=== PATIENT | male | born 1935 | race Caucasian/White ===

== ENCOUNTER 2019-03-02 16:11 | Inpatient (IN) | payer MEDICARE ==
--- NOTE | 2019-03-02 18:18 | XR ---
EXAMINATION TYPE: XR hand complete RT DATE OF EXAM: 03/02/2019 COMPARISON: NONE HISTORY: Pain and swelling TECHNIQUE: 3 views FINDINGS: There is soft tissue swelling on the dorsum of the hand. There is periarticular calcificati on at the second and third MP joints. I see no definite fracture. There is calcification in the trian gular cartilage of the wrist. IMPRESSION: Soft tissue swelling. Osteoarthritis and chondrocalcinosis. There is some tumoral calcino sis around the second and third MP joints. No fracture seen.
--- NOTE | 2019-03-02 18:19 | XR ---
EXAMINATION TYPE: XR wrist complete RT DATE OF EXAM: 03/02/2019 COMPARISON: NONE HISTORY: Pain and swelling TECHNIQUE: 4 views FINDINGS: There is soft tissue swelling around the wrist. There is calcification of the triangular ca rtilage. Carpal bones appear intact. I see no fracture. IMPRESSION: Chondrocalcinosis. No fracture seen. Soft tissue swelling.
--- NOTE | 2019-03-02 18:21 | XR ---
EXAMINATION TYPE: XR elbow complete RT DATE OF EXAM: 03/02/2019 COMPARISON: NONE HISTORY: Pain TECHNIQUE: 3 views FINDINGS: There is spurring on the olecranon process. There is moderate spurring and calcification of the coronoid process of the ulna. There is spurring of the radial head and at the radial tubercle. T here is no evidence of joint effusion. IMPRESSION: Hypertrophic osteoarthritis. No fracture seen.
[2019-03-02 18:31] LABS: INR 0.9 (<1.2); Partial Thromboplastin Time 22.3 sec (22.0-30.0); Prothrombin Time 10.1 sec (9.0-12.0)
[2019-03-02 18:34] LABS: Basophils # (A) 0.1 k/uL (0-0.2); Basophils % (A) 1 %; Eosinophils # (A) 0.3 k/uL (0-0.7); Eosinophils % (A) 3 %; HGB 12.3 gm/dL (13.0-17.5); Lymphocytes % (A) 11 %; MCH 29.8 pg (25.0-35.0); MCHC 33.1 g/dL (31.0-37.0); MCV 90.1 fL (80.0-100.0); Mean Platelet Volume 8.7; Monocytes # (A) 0.7 k/uL (0-1.0); Monocytes % (A) 8 %; Neutrophils # (A) 7.2 k/uL (1.3-7.7); Neutrophils % (A) 76 %; Platelet Count 193 k/uL (150-450); RBC 4.11 m/uL (4.30-5.90); RDW 14.2 % (11.5-15.5); WBC 9.4 k/uL (3.8-10.6)
[2019-03-02 18:36] LABS: Albumin 3.8 g/dL (3.5-5.0); C Reactive Protein 44.6 mg/L (<10.0); Calcium 10.1 mg/dL (8.4-10.2); Potassium 3.8 mmol/L (3.5-5.1); Total Bilirubin 1.1 mg/dL (0.2-1.3); Total Protein 6.6 g/dL (6.3-8.2)
[2019-03-02] MEDS ORDERED: SODIUM CHLORIDE 0.9% 500 ML 500 ML IV ONE (19:38)
[2019-03-02 19:41] LABS: Erythrocyte Sedimentation Rate 48 mm/hr (0-15)
[2019-03-02] MEDS ORDERED: PIPERACILLIN-TAZOBACTAM 3.375 GM in SODIUM CHLORIDE 0.9% 100 ML IVPB STA (20:16)
[2019-03-02] MEDS ORDERED: VANCOMYCIN IV PER PHARMACY 1 EACH MISC MISCELLANE PRN (20:17)
--- NOTE | 2019-03-02 20:17 | US ---
EXAMINATION TYPE: US venous doppler duplex UE RT DATE OF EXAM: 03/02/2019 COMPARISON: NONE CLINICAL HISTORY: Pain. Right arm swelling SIDE PERFORMED: Right Right Arm: Negative for DVT No evidence of DVT right arm IMPRESSION: There is venous flow demonstrated in the jugular subclavian axillary brachial vein of the right arm. There is also patency of the radius and ulna veins. There is no evidence of thrombosis.
--- NOTE | 2019-03-02 20:23 | ED ---
Upper Extremity HPI - General Chief Complaint: Extremity Injury, Upper Stated Complaint: Arm injury/arm swelling Time Seen by Provider: 03/02/19 17:23 Source: patient Mode of arrival: ambulatory Limitations: altered mental status - History of Present Illness Initial Comments: 83-year-old male with past medical history of Alzheimer's presenting today for chief complaint of right hand swelling x3 days. Patient is accompanied by his who states that patient's hand was swollen on Saturday. She denies patient falling patient denies any known injury. She states she examined the area and noticed a small abrasion of the right posterior elbow with some surrounding redness/bruising. Patient states she feels he may have had an injury. Patient was unable to find the insurance card and did not present for evaluation until today. She denies noting a fever. Patient states is tender to touch of the right hand and red. Family denies anticoagulation use. denies abnormal behaviors. She states patient frequently picks his skin and has multiple open areas of the skin. She states he has history of skin cancer, denies history of blood clots. Pt denies loss of sensation or coolness of the extremity. Pt states it is family to move all 5 fingers due to the swelling. Remaining ROS (-), upon arrival patient appears well, no signs of acute distress. - Related Data Home Medications Medication Instructions Recorded Confirmed Ascorbic Acid [Vitamin C] 500 mg PO DAILY 03/02/19 03/02/19 Cholecalciferol [Vitamin D3] 1,000 unit PO DAILY 03/02/19 03/02/19 Cyanocobalamin (Vitamin B-12) 1,000 mcg PO DAILY 03/02/19 03/02/19 [Vitamin B-12] Donepezil [Aricept] 10 mg PO DAILY 03/02/19 03/02/19 Levothyroxine Sodium [Synthroid] 50 mcg PO DAILY 03/02/19 03/02/19 Losartan/Hydrochlorothiazide 1 tab PO DAILY 03/02/19 03/02/19 [Hyzaar 100-25 Tablet] Minipress (Mg Unknown) 1 cap PO DAILY 03/02/19 03/02/19 Minipress (Mg Unknown) 2 cap PO HS 03/02/19 03/02/19 Mirabegron [Myrbetriq] 25 mg PO DAILY 03/02/19 03/02/19 Mirabegron [Myrbetriq] 50 mg PO DAILY 03/02/19 03/02/19 NIFEdipine XL [Procardia XL] 60 mg PO DAILY 03/02/19 03/02/19 Pantoprazole Sodium [Protonix] 40 mg PO DAILY 03/02/19 03/02/19 Ranitidine HCl [Zantac] 300 mg PO DAILY 03/02/19 03/02/19 Simvastatin [Zocor] 10 mg PO DAILY 03/02/19 03/02/19 Tamsulosin HCl [Flomax] 0.8 mg PO DAILY 03/02/19 03/02/19 Allergies Allergy/AdvReac Type Severity Reaction Status Date / Time No Known Allergies Allergy Verified 03/02/19 20:43 Review of Systems ROS Statement: Those systems with pertinent positive or pertinent negative responses have been documented in the HPI. ROS Other: All systems not noted in ROS Statement are negative. Past Medical History Past Medical History: Coronary Artery Disease (CAD), Dementia, Diabetes Mellitus, Hyperlipidemia, Hypertension, Thyroid Disorder History of Any Multi-Drug Resistant Organisms: None Reported Additional Past Surgical History / Comment(s): toe amputation Past Psychological History: No Psychological Hx Reported Smoking Status: Never smoker Past Alcohol Use History: None Reported Past Drug Use History: None Reported - Past Family History Brother(s) Family Medical History: Diabetes Mellitus General Exam - General Exam Comments Initial Comments: General: The patient is awake and alert, in no distress, and does not appear acutely ill. Eye: +3 mm pupils are equal, round and reactive to light, extra-ocular movements are intact. No nystagmus. There is normal conjunctiva bilaterally. No signs of icterus. Ears, nose, mouth and throat: There are moist mucous membranes and no oral lesions. Neck: The neck is supple, there is no tenderness or JVD. Cardiovascular: There is a regular rate and rhythm. No murmur, rub or gallop is appreciated. Respiratory: Lungs are clear to auscultation, respirations are non-labored, b reath sounds are equal. No wheezes, stridor, rales, or rhonchi. Gastrointestinal: Soft, non-distended, non-tender abdomen without masses or organomegaly noted. There is no rebound or guarding present. No CVA tenderness. Bowel sounds are unremarkable. Musculoskeletal: Normal ROM, no tenderness. Strength 5/5. Sensation intact. Radial pulses equal bilaterally 2+. Neurological: A&O x 3. CN II-XII intact, There are no obvious motor or sensory deficits. Coordination appears grossly intact. Speech is normal. Skin: Skin is warm and dry and no rashes. Superifical abrasions, and areas of obviously picked skin on UE b/l. There is linear abrasion posterior right elbow, slight swelling of the right elbow no warmth/erythema. Significant swelling with warmth of the dorsal aspect of the right hand, extensor surface over metacarpals. Capillary refill < 2 seconds. Compressible swelling/pitting. Finger are mildly swollen. Pain with palpation of hand, and full extension of all 5 digits. Psychiatric: Cooperative, appropriate mood & affect, normal judgment. Limitations: altered mental status Course Vital Signs 03/02/19 03/02/19 17:09 21:49 Temperature 98.4 F Pulse Rate 82 80 Respiratory 18 18 Rate Blood Pressure 144/75 174/66 O2 Sat by Pulse 99 98 Oximetry - Reevaluation(s) Reevaluation #1: Contacted orthopedic surgery ux information architect CARINE Jovel, described physical exam, imaging studies, US findings. Recommended treatment cellulitis with ID on consult. 03/02/19 21:04 Medical Decision Making - Medical Decision Making 83-year-old male presenting for right hand swelling. Family suspicious of injury. No fracture on x-ray. Hand is swollen and erythematous warm. Concer regina for infection. Neurovascularly intact. Hand tissues compressible no pain out of proportion or pallor, sensation intact. Patient was started on vancomycin and ceftriaxone. Patient many open abrasions on the skin most likely cellulitis. US (-) for DVT. I did discuss all exam findings with on-call physician life science research assistant for orthopedic surgeon Leonard Jovel. Recommended medicine admit, with ID consult for cellulitis. No further orthopedic intervention. Pt appears nontoxic. No leukocytosis. CRP elevated. Blood culture pending. Pt was evaluated by attending physician Dr. Nguyen who agreed with impression and plan. He spoke with admitting physician Dr. Wang no further orders at this time. Pt guardian agreeable with admission. - Lab Data Result diagrams: 03/02/19 18:15 03/02/19 18:15 Lab Results 04/22/19 04/22/19 04/22/19 Range/Units 18:15 18:15 18:15 WBC 9.4 (3.8-10.6) k/uL RBC 4.11 L (4.30-5.90) m/uL Hgb 12.3 L (13.0-17.5) gm/dL Hct 37.0 L (39.0-53.0) % MCV 90.1 (80.0-100.0) fL MCH 29.8 (25.0-35.0) pg MCHC 33.1 (31.0-37.0) g/dL RDW 14.2 (11.5-15.5) % Plt Count 193 (150-450) k/uL Neutrophils % 76 % Lymphocytes % 11 % Monocytes % 8 % Eosinophils % 3 % Basophils % 1 % Neutrophils # 7.2 (1.3-7.7) k/uL Lymphocytes # 1.0 (1.0-4.8) k/uL Monocytes # 0.7 (0-1.0) k/uL Eosinophils # 0.3 (0-0.7) k/uL Basophils # 0.1 (0-0.2) k/uL ESR 48 H (0-15) mm/hr PT 10.1 (9.0-12.0) sec INR 0.9 (<1.2) APTT 22.3 (22.0-30.0) sec Sodium 134 L (137-145) mmol/L Potassium 3.8 (3.5-5.1) mmol/L Chloride 101 (98-107) mmol/L Carbon Dioxide 23 (22-30) mmol/L Anion Gap 10 mmol/L BUN 50 H (9-20) mg/dL Creatinine 1.85 H (0.66-1.25) mg/dL Est GFR (CKD-EPI)AfAm 38 (>60 ml/min/1.73 sqM) Est GFR (CKD-EPI)NonAf 33 (>60 ml/min/1.73 sqM) Glucose 298 H (74-99) mg/dL Calcium 10.1 (8.4-10.2) mg/dL Total Bilirubin 1.1 (0.2-1.3) mg/dL AST 55 (17-59) U/L ALT 85 H (21-72) U/L Alkaline Phosphatase 183 H (38-126) U/L C-Reactive Protein 44.6 H (<10.0) mg/L Total Protein 6.6 (6.3-8.2) g/dL Albumin 3.8 (3.5-5.0) g/dL Disposition Clinical Impression: Cellulitis of hand Disposition: ADMITTED IP TO THIS [facility] Condition: Stable Is patient prescribed a controlled substance at d/c from ED?: No Time of Disposition: 21:07 Decision to Admit Reason: Admit from EC Decision Date: 03/02/19 Decision Time: 21:07
[2019-03-02] MEDS ORDERED: VANCOMYCIN 1,500 MG in SODIUM CHLORIDE 0.9% 250 ML IVPB STA (20:24)
[2019-03-02] MEDS ORDERED: NALOXONE 0.4 MG/ML 1 ML VIAL IV PRN (21:00)
[2019-03-02] MEDS ORDERED: ACETAMINOPHEN TAB 325 MG TAB PO PRN (21:00)
[2019-03-02] MEDS: SODIUM CHLORIDE 0.9% 1,000 ML IV SCH (21:33)
[2019-03-02 22:30] VITALS: BMI 29.9
[2019-03-03] MEDS ORDERED: MINIPRESS PO SCH ×2 (09:00→21:00)
[2019-03-03] MEDS: FAMOTIDINE 20 MG TAB PO SCH (09:30)
[2019-03-03] MEDS: TAMSULOSIN 0.4 MG CAP.ER.24H PO SCH (09:30)
[2019-03-03] MEDS: DONEPEZIL 10 MG TAB PO SCH (09:30)
[2019-03-03] MEDS: LEVOTHYROXINE 50 MCG TAB PO SCH (09:31)
[2019-03-03] MEDS: Mirabegron [Myrbetriq] PO SCH ×2 (09:31)
[2019-03-03] MEDS: PANTOPRAZOLE 40 MG TABLET PO SCH (09:31)
[2019-03-03 10:06] LABS: Basophils % (A) 0 %; Eosinophils # (A) 0.3 k/uL (0-0.7); Eosinophils % (A) 3 %; HCT 33.6 % (39.0-53.0); HGB 11.1 gm/dL (13.0-17.5); Lymphocytes # (A) 0.6 k/uL (1.0-4.8); Lymphocytes % (A) 8 %; MCH 29.9 pg (25.0-35.0); MCHC 33.2 g/dL (31.0-37.0); MCV 90.2 fL (80.0-100.0); Mean Platelet Volume 8.1; Monocytes # (A) 0.5 k/uL (0-1.0); Monocytes % (A) 6 %; Neutrophils # (A) 6.3 k/uL (1.3-7.7); Neutrophils % (A) 81 %; Platelet Count 162 k/uL (150-450); RBC 3.72 m/uL (4.30-5.90); RDW 13.9 % (11.5-15.5); WBC 7.8 k/uL (3.8-10.6)
[2019-03-03 10:08] LABS: Appearance,Urine Cloudy (Clear); Bacteria,Urine Occasional /hpf; Bilirubin,Urine Negative (Negative); Blood,Urine Trace (Negative); Color,Urine Yellow; Glucose,Urine (UA) Negative (Negative); Ketones,Urine Negative (Negative); Leukocyte Esterase,Urine Large (Negative); Nitrite,Urine Negative (Negative); PH, Urine 5.5 (5.0-8.0); Protein,Urine Trace (Negative); RBC,Urine 4 /hpf (0-5); Specific Gravity,Urine 1.015 (1.001-1.035); Urobilinogen,Urine <2.0 mg/dL (<2.0); WBC,Urine >182 /hpf (0-5)
[2019-03-03 10:22] LABS: Albumin 3.3 g/dL (3.5-5.0); Calcium 9.8 mg/dL (8.4-10.2); Potassium 3.6 mmol/L (3.5-5.1); Total Bilirubin 0.9 mg/dL (0.2-1.3); Total Protein 5.9 g/dL (6.3-8.2)
--- NOTE | 2019-03-03 10:43 | P.HPIM ---
History of Present Illness H&P Date: 03/03/19 This is an 83-year-old male patient of Dr. velasquez. Patient presented with complaints of increased redness and swelling to right hand. The pharmacy per ER report. Noticed hand was swollen on Saturday. There is no evidence of fall or injury. Patient's did notice a small abrasion to the right posterior elbow. Patient does have a past medical history of advanced dementia, coronary artery disease, diabetes mellitus, hyperlipidemia, hypertension and hypothyroidism.right hand x-ray completed showing soft tissue swelling. Osteoarthritis and chrondrocalcinosis. There is some tumoral calcinosis around the MP joints no fracture seen. Right wrist x-ray is showing chondrocalcinosis no fracture seen soft tissue swelling. Right elbow x-ray completed showing hypertrophic osteophytes. No fracture seen. Venous Doppler completed showing no evidence of DVT in right arm. Blood culture ordered. Patient's creatinine also elevated at 1.[address] Guillory has been consulted for infectious disease. Patient started on Rocephin and vancomycin. UA also positive for leukocyte esterase. Patient also having increased swelling to left lower extremity. Venous Doppler has been ordered. At this time patient denies chest pain or shortness breath. Patient denies nausea vomiting or diarrhea. Patient denies any urinary burning or frequency. Review of Systems Please refer to HPI otherwise unremarkable Past Medical History Past Medical History: Coronary Artery Disease (CAD), Dementia, Diabetes Mellitus, Hyperlipidemia, Hypertension, Thyroid Disorder History of Any Multi-Drug Resistant Organisms: None Reported Additional Past Surgical History / Comment(s): toe amputation Past Anesthesia/Blood Transfusion Reactions: No Reported Reaction Past Psychological History: No Psychological Hx Reported Smoking Status: Never smoker Past Alcohol Use History: None Reported Past Drug Use History: None Reported - Past Family History Brother(s) Family Medical History: Diabetes Mellitus Medications and Allergies Home Medications Medication Instructions Recorded Confirmed Type Ascorbic Acid [Vitamin C] 500 mg PO DAILY 03/02/19 03/02/19 History Cholecalciferol [Vitamin D3] 1,000 unit PO DAILY 03/02/19 03/02/19 History Cyanocobalamin (Vitamin B-12) 1,000 mcg PO DAILY 03/02/19 03/02/19 History [Vitamin B-12] Donepezil [Aricept] 10 mg PO DAILY 03/02/19 03/02/19 History Levothyroxine Sodium [Synthroid] 50 mcg PO DAILY 03/02/19 03/02/19 History Losartan/Hydrochlorothiazide 1 tab PO DAILY 03/02/19 03/02/19 History [Hyzaar 100-25 Tablet] Mirabegron [Myrbetriq] 25 mg PO DAILY 03/02/19 03/02/19 History Mirabegron [Myrbetriq] 50 mg PO DAILY 03/02/19 03/02/19 History NIFEdipine XL [Procardia XL] 60 mg PO DAILY 03/02/19 03/02/19 History Pantoprazole Sodium [Protonix] 40 mg PO DAILY 03/02/19 03/02/19 History Ranitidine HCl [Zantac] 300 mg PO DAILY 03/02/19 03/02/19 History Simvastatin [Zocor] 10 mg PO DAILY 03/02/19 03/02/19 History Tamsulosin HCl [Flomax] 0.8 mg PO DAILY 03/02/19 03/02/19 History Prazosin [Minipress] 5 mg PO DAILY 03/03/19 03/03/19 History Prazosin [Minipress] 10 mg PO HS 03/03/19 03/03/19 History Allergies Allergy/AdvReac Type Severity Reaction Status Date / Time No Known Allergies Allergy Verified 03/02/19 20:43 Physical Exam Vitals: Vital Signs Temp Pulse Pulse Resp BP BP Pulse Ox 03/03/19 04:48 98.2 F 85 18 174/67 93 L 03/02/19 23:00 97.3 F L 81 16 167/73 96 03/02/19 21:49 80 18 174/66 98 03/02/19 17:09 98.4 F 82 18 144/75 99 Intake and Output 03/02/19 03/03/19 03/03/19 22:59 06:59 14:59 Other: # Voids 2 Weight 86.636 kg Head normocephalic Neck supple Lungs clear to auscultation bilaterally no wheezing or crackles Heart regular rate and rhythm S1-S2, no rub or gallop Abdomen is soft nontender nondistended positive bowel sounds no hepatosplenomegaly Extremities. Right wrist and hand erythema and edematous. Left leg warm and swollenn Neuro dementia. Alert Results CBC & Chem 7: 03/03/19 09:33 03/03/19 09:33 Labs: Abnormal Lab Results - Last 24 Hours (Table) 03/02/19 03/02/19 03/03/19 Range/Units 18:15 18:15 09:05 RBC 4.11 L (4.30-5.90) m/uL Hgb 12.3 L (13.0-17.5) gm/dL Hct 37.0 L (39.0-53.0) % ESR 48 H (0-15) mm/hr Sodium 134 L (137-145) mmol/L BUN 50 H (9-20) mg/dL Creatinine 1.85 H (0.66-1.25) mg/dL Glucose 298 H (74-99) mg/dL ALT 85 H (21-72) U/L Alkaline Phosphatase 183 H (38-126) U/L C-Reactive Protein 44.6 H (<10.0) mg/L Urine Protein Trace H (Negative) Urine Blood Trace H (Negative) Ur Leukocyte Esterase Large H (Negative) Urine WBC >182 H (0-5) /hpf Urine WBC Clumps Occasional H (None) /hpf Urine Bacteria Occasional H (None) /hpf Thrombosis Risk Factor Assmnt - Choose All That Apply Any of the Below Risk Factors Present?: Yes Each Factor Represents 1 point: Obesity (BMI >25), Swollen legs (current) Other Risk Factors: Yes Each Risk Factor Represents 3 Points: Age 75 years or older Other congenital or acquired thrombophilia - If yes, enter type in comment: No Thrombosis Risk Factor Assessment Total Risk Factor Score: 5 Thrombosis Risk Factor Assessment Level: High Risk Assessment and Plan Assessment: 1. Right hand cellulitis. Venous Doppler negative for DVT in right upper extremity Patient started on vancomycin and Rocephin. Dr. Guillory has been consulted. Blood culture ordered. 2. Acute kidney injury. Creatinine elevated at 1.85 and bun 50. Patient's home medication of losartan hydrochlorothiazide currently on hold. Repeat labs have been ordered 3. Urinary tract infection. UA positive for the same Estrace. Urine culture ordered. Patient currently maintained on vancomycin and Rocephin 4. Left lower extremity swelling. Will order venous Doppler 5. Dementia. 6. Diabetes mellitus. Patient currently not on any oral agents. Blood sugar is elevated. Sliding scale insulin ordered for hemoglobin A1C ordered 7. History of BPH 8. History of hyperlipidemia 9. History of essential hypertension 10. Hypothyroidism 11. Elevated liver enzymes. ALT 85 alkaline phosphatase 183. Statin currently on hold. Repeat labs ordered DVT prophylaxis Lovenox. GI prophylaxis Protonix Time with Patient: Greater than 30 (Greater than 60% of the total time spent in counseling and coordination of care. I performed an examination of the patient and discussed their management with the Nurse Practitioner. I have reviewed the Nurse Practitioner's notes and agree with the documented findings and plan of care)
[2019-03-03] MEDS ORDERED: ENOXAPARIN 40 MG/0.4 ML SYRINGE SQ SCH (10:45)
[2019-03-03] MEDS: PRAZOSIN 1 MG CAP PO SCH ×2 (11:27→20:20)
[2019-03-03] MEDS ORDERED: VANCOMYCIN 1,500 MG in SODIUM CHLORIDE 0.9% 250 ML IVPB ONE (12:00)
[2019-03-03 12:07] LABS: Glucose,Whole Blood 271 mg/dL (75-99)
[2019-03-03] MEDS: INSULIN ASPART (NovoLOG) 100 UNIT/ML VIAL SQ SCH ×3 (12:34→21:21)
[2019-03-03] MEDS: SODIUM CHLORIDE 0.9% 1,000 ML IV SCH ×2 (12:34→20:20)
--- NOTE | 2019-03-03 12:41 | US ---
EXAMINATION TYPE: US venous doppler duplex LE DATE OF EXAM: 03/03/2019 10:58 AM COMPARISON: NONE CLINICAL HISTORY: Rule out DVT. left leg swelling, patient confused, states no h/o dvt SIDE PERFORMED: bilateral TECHNIQUE: The lower extremity deep venous system is examined utilizing real time linear array sonog vargas with graded compression, doppler sonography and color-flow sonography. VESSELS IMAGED: External Iliac Vein (EIV) Common Femoral Vein Deep Femoral Vein Greater Saphenous Vein * Femoral Vein Popliteal Vein Small Saphenous Vein * Proximal Calf Veins (* superficial vessels) Right Leg: Appears negative for DVt Left Leg: Internal echoes with thready to no flow seen from proximal calf veins up through eiv, vein does not fully compress. IMPRESSION: 1. DVT left lower extremity. 2. No evidence of DVT right lower extremity.
[2019-03-03] MEDS ORDERED: HEPARIN SODIUM,PORCINE 5,000 UNIT/ML 1 ML VIAL IV PRN (12:55)
[2019-03-03] MEDS ORDERED: HEPARIN SODIUM,PORCINE 10,000 UNIT/ML 1 ML VIAL IV ONE (12:55)
[2019-03-03 13:17] LABS: Basophils # (A) 0.1 k/uL (0-0.2); Basophils % (A) 1 %; Eosinophils # (A) 0.2 k/uL (0-0.7); Eosinophils % (A) 3 %; HCT 32.9 % (39.0-53.0); Lymphocytes # (A) 0.7 k/uL (1.0-4.8); Lymphocytes % (A) 9 %; MCH 30.1 pg (25.0-35.0); MCHC 33.5 g/dL (31.0-37.0); MCV 89.9 fL (80.0-100.0); Mean Platelet Volume 8.8; Monocytes # (A) 0.4 k/uL (0-1.0); Monocytes % (A) 5 %; Neutrophils # (A) 5.8 k/uL (1.3-7.7); Neutrophils % (A) 80 %; Platelet Count 168 k/uL (150-450); RBC 3.66 m/uL (4.30-5.90); RDW 13.8 % (11.5-15.5); WBC 7.2 k/uL (3.8-10.6)
[2019-03-03 13:28] LABS: Partial Thromboplastin Time 23.9 sec (22.0-30.0); Prothrombin Time 10.5 sec (9.0-12.0)
[2019-03-03] MEDS: HEPARIN SOD,PORK IN 0.45% NACL 25,000 UNIT in 0.45% NACL 1 250ML.BAG IV SCH (14:06)
[2019-03-03] MEDS ORDERED: methylPREDNISolone SOD SUCCI 125 MG/2 ML VIAL IV STA (14:14)
[2019-03-03 17:13] LABS: Glucose,Whole Blood 266 mg/dL (75-99)
[2019-03-03 18:36] LABS: Hemoglobin A1C 6.3 % (4.0-6.0)
[2019-03-03 20:45] LABS: Glucose,Whole Blood 340 mg/dL (75-99)
--- NOTE | 2019-03-03 23:59 | P.CONS ---
History of Present Illness - Reason for Consult Consult date: 03/03/19 - Chief Complaint Pain swelling right arm - History of Present Illness 83-year-old male was cared for the family home setting by his of 25 years relates that the patient has been having a decline of his status. He has known dementia which has now had some acute worsening as he is become ill. To arise from the toilet he places his left arm and a culture in the right arm rests on a toilet tissue velazquez. Apparently(with some metal scrolling and resulted in a small scrape onto the arm. He now is developed significant swelling from the hand to proximal to the elbow. The patient developed some fever has not been feeling well. With this he was brought into hospital and consult was requested. Patient was also noticed to have left lower extremity swelling. Flexion evidence of a deep venous thrombosis and heparin has been started. Duplex the right arm without evidence of clot. Review of Systems ROS unobtainable: due to mental status Past Medical History Past Medical History: Coronary Artery Disease (CAD), Dementia, Diabetes Mellitus, Hyperlipidemia, Hypertension, Thyroid Disorder History of Any Multi-Drug Resistant Organisms: None Reported Additional Past Surgical History / Comment(s): toe amputation Past Anesthesia/Blood Transfusion Reactions: No Reported Reaction Past Psychological History: No Psychological Hx Reported Additional Psychological History / Comment(s): to his second . Adult children. No tobacco use. Retired. No experience. No animals in the home. No international travel Smoking Status: Never smoker Past Alcohol Use History: None Reported Past Drug Use History: None Reported - Past Family History Brother(s) Family Medical History: Diabetes Mellitus Medications and Allergies Home Medications and Allergies Comment(s): Current Medications Acetaminophen (Tylenol Tab) 650 mg PO Q6HR PRN PRN Reason: Mild Pain or Fever > 100.5 Donepezil HCl (Aricept) 10 mg PO DAILY [facility] Last Admin: 03/03/19 09:30 Dose: 10 mg Documented by: Famotidine (Pepcid) 40 mg PO DAILY [facility] Last Admin: 03/03/19 09:30 Dose: 40 mg Documented by: Heparin Sodium (Porcine) (Heparin) 0 unit IV PER PROTOCOL PRN; Protocol PRN Reason: Low PTT Sodium Chloride (Saline 0.9%) 1,000 mls @ 75 mls/hr IV .[id number] [facility] Last Admin: 03/03/19 20:20 Dose: 75 mls/hr Documented by: Heparin Sodium/Sodium Chloride (25,000 unit/ Sodium Chloride) 250 mls @ 15.594 mls/hr IV .Q16H2M [facility]; Protocol Last Titration: 03/03/19 21:16 Dose: 15 units/kg/hr, 12.995 mls/hr Documented by: Insulin Aspart (Novolog) 0 unit SQ ACHS [facility]; Protocol Last Admin: 03/03/19 21:21 Dose: 6 unit Documented by: Levothyroxine Sodium (Synthroid) 50 mcg PO DAILY@0630 [facility] Last Admin: 03/03/19 09:31 Dose: 50 mcg Documented by: Miscellaneous Information (Pharmacy To Dose Iv Vancomycin) 1 each MISCELLANE DIRECTED PRN PRN Reason: Per Protocol Naloxone HCl (Narcan) 0.2 mg IV Q2M PRN PRN Reason: Opioid Reversal Nifedipine (Procardia Xl) 60 mg PO DAILY [facility] Last Admin: 03/03/19 09:30 Dose: 60 mg Documented by: Mirabegron [ (Myrbetriq]) 25 mg PO DAILY [facility] Last Admin: 03/03/19 09:31 Dose: Not Given Documented by: Mirabegron [ (Myrbetriq]) 50 mg PO DAILY [facility] Last Admin: 03/03/19 09:31 Dose: Not Given Documented by: Pantoprazole Sodium (Protonix) 40 mg PO AC-BRKFST [facility] Last Admin: 03/03/19 09:31 Dose: 40 mg Documented by: Prazosin HCl (Minipress) 5 mg PO DAILY [facility] Last Admin: 03/03/19 11:27 Dose: 5 mg Documented by: Prazosin HCl (Minipress) 10 mg PO [facility] Last Admin: 03/03/19 20:20 Dose: 10 mg Documented by: Silver Sulfadiazine (Silvadene Cream) 1 applic TOPICAL DAILY [facility] Tamsulosin HCl (Flomax) 0.8 mg PO DAILY [facility] Last Admin: 03/03/19 09:30 Dose: 0.8 mg Documented by: Home Medications Medication Instructions Recorded Confirmed Type Ascorbic Acid [Vitamin C] 500 mg PO DAILY 03/02/19 03/02/19 History Cholecalciferol [Vitamin D3] 1,000 unit PO DAILY 03/02/19 03/02/19 History Cyanocobalamin (Vitamin B-12) 1,000 mcg PO DAILY 03/02/19 03/02/19 History [Vitamin B-12] Donepezil [Aricept] 10 mg PO DAILY 03/02/19 03/02/19 History Levothyroxine Sodium [Synthroid] 50 mcg PO DAILY 03/02/19 03/02/19 History Losartan/Hydrochlorothiazide 1 tab PO DAILY 03/02/19 03/02/19 History [Hyzaar 100-25 Tablet] Mirabegron [Myrbetriq] 25 mg PO DAILY 03/02/19 03/02/19 History Mirabegron [Myrbetriq] 50 mg PO DAILY 03/02/19 03/02/19 History NIFEdipine XL [Procardia XL] 60 mg PO DAILY 03/02/19 03/02/19 History Pantoprazole Sodium [Protonix] 40 mg PO DAILY 03/02/19 03/02/19 History Ranitidine HCl [Zantac] 300 mg PO DAILY 03/02/19 03/02/19 History Simvastatin [Zocor] 10 mg PO DAILY 03/02/19 03/02/19 History Tamsulosin HCl [Flomax] 0.8 mg PO DAILY 03/02/19 03/02/19 History Prazosin [Minipress] 5 mg PO DAILY 03/03/19 03/03/19 History Prazosin [Minipress] 10 mg PO HS 03/03/19 03/03/19 History Allergies Allergy/AdvReac Type Severity Reaction Status Date / Time No Known Allergies Allergy Verified 03/02/19 20:43 Physical Exam Vitals: Vital Signs Temp Pulse Resp BP Pulse Ox 03/03/19 22:21 169/80 03/03/19 21:08 97.6 F 87 18 204/77 94 L 03/03/19 13:39 98.1 F 76 16 156/67 97 03/03/19 04:48 98.2 F 85 18 174/67 93 L Intake and Output 03/03/19 03/03/19 03/04/19 14:59 22:59 06:59 Intake Total 1400 633.304 Balance 1400 633.304 Intake: Intake, IV Titration 1400 93.304 Amount Heparin Sod,Pork in 0.45% 93.304 NaCl 25,000 unit In 0.45 % NaCl 1 250ml.bag @ 18 UNITS/KG/HR 15.594 mls/hr IV .Q16H2M [facility] Rx#: [id number] Sodium Chloride 0.9% 1, 800 000 ml @ 75 mls/hr IV . [id number] [facility] Rx#:[id number] Vancomycin 1,500 mg In 500 Sodium Chloride 0.9% 250 ml @ 125 mls/hr IVPB ONCE ONE Rx#:[id number] cefTRIAXone 2 gm In 100 Sodium Chloride 0.9% 50 ml @ 100 mls/hr IVPB ONCE STA Rx#:[id number] Oral 540 Other: # Voids 8 # Bowel Movements 3 83-year-old male who is not in jemal distress but seems somewhat uncomfortable. Does complain of some right arm discomfort. HEENT: Anicteric conjunctiva are pink and moist nasal mucosa grossly intact without significant lesions, there is no thrush. Dentures in place Neck: The neck is supple without significant lymphadenopathy or thyromegaly. Lungs: Good bilateral air entry without significant crackles or wheezing. There is no significant bronchial sounds. There is no egophony or dullness. Heart: Irregular with an audible S1 and S2 soft S4 and loud 2/6 systolic murmur left sternal border to the axilla Extremities: Left upper extremity without acute lesions. Right upper shortages of the extensive swelling is present from the dorsum of the hand to above the elbow. There is erythema. There is the abrasion that is healing this proximal to the elbow on the olecranon area. There is no significant olecranon bursitis. There is minimal right axillary tenderness. Left arm without acute changes. Left leg has evidence of edema compared to the right. Neuro: Patient is awake and alert. Relates that he and the used to winter in [place]. 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 He used ice 75 to navigate. The patient's relates that he is completely confabulating. Results CBC & Chem 7: 03/03/19 13:02 03/03/19 09:33 Labs: Abnormal Lab Results - Last 24 Hours (Table) 03/03/19 03/03/19 03/03/19 Range/Units 09:05 09:33 09:33 RBC 3.72 L (4.30-5.90) m/uL Hgb 11.1 L (13.0-17.5) gm/dL Hct 33.6 L (39.0-53.0) % Lymphocytes # 0.6 L (1.0-4.8) k/uL APTT (22.0-30.0) sec BUN 41 H (9-20) mg/dL Creatinine 1.56 H (0.66-1.25) mg/dL Glucose 271 H (74-99) mg/dL POC Glucose (mg/dL) (75-99) mg/dL Hemoglobin A1c (4.0-6.0) % Alkaline Phosphatase 158 H (38-126) U/L Total Protein 5.9 L (6.3-8.2) g/dL Albumin 3.3 L (3.5-5.0) g/dL Urine Protein Trace H (Negative) Urine Blood Trace H (Negative) Ur Leukocyte Esterase Large H (Negative) Urine WBC >182 H (0-5) /hpf Urine WBC Clumps Occasional H (None) /hpf Urine Bacteria Occasional H (None) /hpf 03/03/19 03/03/19 03/03/19 Range/Units 09:33 11:40 13:02 RBC 3.66 L (4.30-5.90) m/uL Hgb 11.0 L (13.0-17.5) gm/dL Hct 32.9 L (39.0-53.0) % Lymphocytes # 0.7 L (1.0-4.8) k/uL APTT (22.0-30.0) sec BUN (9-20) mg/dL Creatinine (0.66-1.25) mg/dL Glucose (74-99) mg/dL POC Glucose (mg/dL) 271 H (75-99) mg/dL Hemoglobin A1c 6.3 H (4.0-6.0) % Alkaline Phosphatase (38-126) U/L Total Protein (6.3-8.2) g/dL Albumin (3.5-5.0) g/dL Urine Protein (Negative) Urine Blood (Negative) Ur Leukocyte Esterase (Negative) Urine WBC (0-5) /hpf Urine WBC Clumps (None) /hpf Urine Bacteria (None) /hpf 03/03/19 03/03/19 03/03/19 Range/Units 16:40 19:00 20:44 RBC (4.30-5.90) m/uL Hgb (13.0-17.5) gm/dL Hct (39.0-53.0) % Lymphocytes # (1.0-4.8) k/uL APTT 109.7 H* (22.0-30.0) sec BUN (9-20) mg/dL Creatinine (0.66-1.25) mg/dL Glucose (74-99) mg/dL POC Glucose (mg/dL) 266 H 340 H (75-99) mg/dL Hemoglobin A1c (4.0-6.0) % Alkaline Phosphatase (38-126) U/L Total Protein (6.3-8.2) g/dL Albumin (3.5-5.0) g/dL Urine Protein (Negative) Urine Blood (Negative) Ur Leukocyte Esterase (Negative) Urine WBC (0-5) /hpf Urine WBC Clumps (None) /hpf Urine Bacteria (None) /hpf Microbiology - Last 24 Hours (Table) 03/02/19 18:15 Blood Culture - Preliminary Blood No Growth after 24 hours 03/03/19 09:05 Urine Culture - Preliminary Urine,Clean Catch Laboratory Results WBC 7.2 k/uL (3.8-10.6) 03/03/19 13:02 RBC 3.66 m/uL (4.30-5.90) L 03/03/19 13:02 Hgb 11.0 gm/dL (13.0-17.5) L 03/03/19 13:02 Hct 32.9 % (39.0-53.0) L 03/03/19 13:02 MCV 89.9 fL (80.0-100.0) 03/03/19 13:02 MCH 30.1 pg (25.0-35.0) 03/03/19 13:02 MCHC 33.5 g/dL (31.0-37.0) 03/03/19 13:02 RDW 13.8 % (11.5-15.5) 03/03/19 13:02 Plt Count 168 k/uL (150-450) 03/03/19 13:02 Neutrophils % 80 % 03/03/19 13:02 Lymphocytes % 9 % 03/03/19 13:02 Monocytes % 5 % 03/03/19 13:02 Eosinophils % 3 % 03/03/19 13:02 Basophils % 1 % 03/03/19 13:02 Neutrophils # 5.8 k/uL (1.3-7.7) 03/03/19 13:02 Lymphocytes # 0.7 k/uL (1.0-4.8) L 03/03/19 13:02 Monocytes # 0.4 k/uL (0-1.0) 03/03/19 13:02 Eosinophils # 0.2 k/uL (0-0.7) 03/03/19 13:02 Basophils # 0.1 k/uL (0-0.2) 03/03/19 13:02 ESR 48 mm/hr (0-15) H 03/02/19 18:15 PT 10.5 sec (9.0-12.0) 03/03/19 13:02 INR 1.0 (<1.2) 03/03/19 13:02 APTT 109.7 sec (22.0-30.0) H* 03/03/19 19:00 Sodium 137 mmol/L (137-145) 03/03/19 09:33 Potassium 3.6 mmol/L (3.5-5.1) 03/03/19 09:33 Chloride 104 mmol/L (98-107) 03/03/19 09:33 Carbon Dioxide 25 mmol/L (22-30) 03/03/19 09:33 Anion Gap 8 mmol/L 03/03/19 09:33 BUN 41 mg/dL (9-20) H 03/03/19 09:33 Creatinine 1.56 mg/dL (0.66-1.25) H 03/03/19 09:33 Est GFR (CKD-EPI)AfAm 47 (>60 ml/min/1.73 sqM) 03/03/19 09:33 Est GFR (CKD-EPI)NonAf 40 (>60 ml/min/1.73 sqM) 03/03/19 09:33 Glucose 271 mg/dL (74-99) H 03/03/19 09:33 POC Glucose (mg/dL) 340 mg/dL (75-99) H 03/03/19 20:44 POC Glu Electrical Troubleshooter ID Ivana, Staci 03/03/19 20:[address] Glu mg/dL 134 03/03/19 09:33 Hemoglobin A1c 6.3 % (4.0-6.0) H 03/03/19 09:33 Uric Acid 7.8 mg/dL (3.5-8.5) 03/03/19 13:02 Calcium 9.8 mg/dL (8.4-10.2) 03/03/19 09:33 Total Bilirubin 0.9 mg/dL (0.2-1.3) 03/03/19 09:33 AST 28 U/L (17-59) 03/03/19 09:33 ALT 72 U/L (21-72) 03/03/19 09:33 Alkaline Phosphatase 158 U/L (38-126) H 03/03/19 09:33 C-Reactive Protein 44.6 mg/L (<10.0) H 03/02/19 18:15 Total Protein 5.9 g/dL (6.3-8.2) L 03/03/19 09:33 Albumin 3.3 g/dL (3.5-5.0) L 03/03/19 09:33 Urine Color Yellow 03/03/19 09:05 Urine Appearance Cloudy (Clear) 03/03/19 09:05 Urine pH 5.5 (5.0-8.0) 03/03/19 09:05 Ur Specific [place] 1.015 (1.001-1.035) 03/03/19 09:05 Urine Protein Trace (Negative) H 03/03/19 09:05 Urine Glucose (UA) Negative (Negative) 03/03/19 09:05 Urine Ketones Negative (Negative) 03/03/19 09:05 Urine Blood Trace (Negative) H 03/03/19 09:05 Urine Nitrite Negative (Negative) 03/03/19 09:05 Urine Bilirubin Negative (Negative) 03/03/19 09:05 Urine Urobilinogen <2.0 mg/dL (<2.0) 03/03/19 09:05 Ur Leukocyte Esterase Large (Negative) H 03/03/19 09:05 Urine RBC 4 /hpf (0-5) 03/03/19 09:05 Urine WBC >182 /hpf (0-5) H 03/03/19 09:05 Urine WBC Clumps Occasional /hpf (None) H 03/03/19 09:05 Urine Bacteria Occasional /hpf (None) H 03/03/19 09:05 Stool Occult Blood Negative (Negative) 03/03/19 17:04 Microbiology 03/02/19 18:15 Blood Blood Culture - Preliminary No Growth after 24 hours 03/03/19 09:05 Urine,Clean Catch Urine Culture - Preliminary Assessment and Plan (1) Cellulitis of right arm Narrative/Plan: 83-year-old male is brought to Hospital by his because of worsening of his overall status. He has underlying dementia but seemed to have worsening as the pain swelling and redness to his right arm worsened. There is evidence of the cellulitis of the arm and antibiotic therapy with ceftriaxone and vancomycin have been started. Cultures are process. A Silvadene wrap is been requested for the right arm and addition of elevation a couple pillows will be helpful. The left leg is evidence of the acute deep venous thrombosis and is being anticoagulated. The patient may require ongoing intravenous antibiotic therapy and likely will go to rehabilitation to complete physical therapy and antibiotic therapy at discharge. Current Visit: Yes Status: Acute Code(s): L03.113 - CELLULITIS OF RIGHT UPPER LIMB SNOMED Code(s): 171439912 (2) Cellulitis of hand Current Visit: Yes Status: Acute Code(s): L03.119 - CELLULITIS OF UNSPECIFIED PART OF LIMB SNOMED Code(s): 67254575 (3) Dementia Current Visit: Yes Status: Acute Code(s): F03.90 - UNSPECIFIED DEMENTIA WITHOUT BEHAVIORAL DISTURBANCE SNOMED Code(s): 49971574 (4) Left leg DVT Current Visit: Yes Status: Acute Code(s): I82.402 - ACUTE EMBOLISM AND THOMBOS UNSP DEEP VEINS OF L LOW EXTREM SNOMED Code(s): 531473778
[2019-03-04] MEDS: LEVOTHYROXINE 50 MCG TAB PO SCH (05:01)
[2019-03-04 07:17] LABS: Glucose,Whole Blood 277 mg/dL (75-99)
[2019-03-04 08:22] LABS: Basophils % (A) 0 %; Eosinophils % (A) 0 %; HCT 36.1 % (39.0-53.0); Lymphocytes # (A) 0.8 k/uL (1.0-4.8); Lymphocytes % (A) 8 %; MCH 30.2 pg (25.0-35.0); MCHC 33.3 g/dL (31.0-37.0); MCV 90.5 fL (80.0-100.0); Mean Platelet Volume 8.5; Monocytes # (A) 0.5 k/uL (0-1.0); Monocytes % (A) 5 %; Neutrophils # (A) 9.1 k/uL (1.3-7.7); Neutrophils % (A) 86 %; Platelet Count 201 k/uL (150-450); RBC 3.99 m/uL (4.30-5.90); RDW 13.8 % (11.5-15.5); WBC 10.6 k/uL (3.8-10.6)
[2019-03-04] MEDS: PANTOPRAZOLE 40 MG TABLET PO SCH (08:24)
[2019-03-04] MEDS: FAMOTIDINE 20 MG TAB PO SCH (08:24)
[2019-03-04] MEDS: DONEPEZIL 10 MG TAB PO SCH (08:25)
[2019-03-04] MEDS: INSULIN ASPART (NovoLOG) 100 UNIT/ML VIAL SQ SCH ×4 (08:25→21:31)
[2019-03-04] MEDS: TAMSULOSIN 0.4 MG CAP.ER.24H PO SCH (08:25)
[2019-03-04] MEDS: HEPARIN SOD,PORK IN 0.45% NACL 25,000 UNIT in 0.45% NACL 1 250ML.BAG IV SCH ×3 (08:25→23:15)
[2019-03-04] MEDS: PRAZOSIN 1 MG CAP PO SCH ×2 (08:26→21:30)
[2019-03-04] MEDS: Mirabegron [Myrbetriq] PO SCH ×2 (08:37)
[2019-03-04 09:14] LABS: Albumin 3.6 g/dL (3.5-5.0); Calcium 10.3 mg/dL (8.4-10.2); Total Bilirubin 0.8 mg/dL (0.2-1.3); Total Protein 6.4 g/dL (6.3-8.2)
[2019-03-04] MEDS: hydrALAZINE HCL 25 MG TAB PO SCH ×3 (09:39→21:30)
[2019-03-04] MEDS: VANCOMYCIN 1,500 MG in SODIUM CHLORIDE 0.9% 250 ML IVPB SCH (11:32)
--- NOTE | 2019-03-04 11:47 | P.PN ---
Subjective Progress Note Date: 03/04/19 This is an 83-year-old male patient of Dr. velasquez. Patient presented with complaints of increased redness and swelling to right hand. The pharmacy per ER report. Noticed hand was swollen on Saturday. There is no evidence of fall or injury. Patient's did notice a small abrasion to the right posterior elbow. Patient does have a past medical history of advanced dementia, coronary artery disease, diabetes mellitus, hyperlipidemia, hypertension and hypothyroidism.right hand x-ray completed showing soft tissue swelling. Osteoarthritis and chrondrocalcinosis. There is some tumoral calcinosis around the MP joints no fracture seen. Right wrist x-ray is showing chondrocalcinosis no fracture seen soft tissue swelling. Right elbow x-ray completed showing hypertrophic osteophytes. No fracture seen. Venous Doppler completed showing no evidence of DVT in right arm. Blood culture ordered. Patient's creatinine also elevated at 1.[address] Guillory has been consulted for infectious disease. Patient started on Rocephin and vancomycin. UA also positive for leukocyte esterase. Patient also having increased swelling to left lower extremity. Venous Doppler has been ordered. At this time patient denies chest pain or shortness breath. Patient denies nausea vomiting or diarrhea. Patient denies any urinary burning or frequency. On 03/04/2019 patient currently resting comfortably in bed. Patient was positive for DVT in left lower extremity. Started on heparin drip. Patient remains on vancomycin for right hand and wrist cellulitis. Dr. Guillory is following. Cultures pending. Creatinine improving to 1.26. Patient did have hypotension throughout night 180s to 200s. Hydralazine 25 3 times a day has been added. At this time patient denies pain or shortness of breath. Patient denies any nausea or vomiting. Denies any urinary burning or frequency. Objective - Vital Signs Vital signs: Vital Signs Temp 97.7 F 03/04/19 05:14 Pulse 79 03/04/19 05:14 Resp 18 03/04/19 05:14 BP 120/52 03/04/19 10:30 Pulse Ox 92 L 03/04/19 05:14 Intake & Output 03/03/19 03/04/19 03/04/19 18:59 06:59 18:59 Intake Total 1939 161.311 88.689 Balance 1939 161.311 88.689 Intake: Intake, IV Titration 1400 161.311 88.689 Amount Heparin Sod,Pork in 0.45% 161.311 88.689 NaCl 25,000 unit In 0.45 % NaCl 1 250ml.bag @ 18 UNITS/KG/HR 15.594 mls/hr IV .Q16H2M [facility] Rx#: [id number] Sodium Chloride 0.9% 1, 800 000 ml @ 75 mls/hr IV . [id number] [facility] Rx#:[id number] Vancomycin 1,500 mg In 500 Sodium Chloride 0.9% 250 ml @ 125 mls/hr IVPB ONCE ONE Rx#:[id number] cefTRIAXone 2 gm In 100 Sodium Chloride 0.9% 50 ml @ 100 mls/hr IVPB ONCE STA Rx#:[id number] Oral 540 Other: Voiding Method Incontinent # Voids 8 2 2 # Bowel Movements 3 1 - Exam Head normocephalic Neck supple Lungs clear to auscultation bilaterally no wheezing or crackles Heart regular rate and rhythm S1-S2, no rub or gallop Abdomen is soft nontender nondistended positive bowel sounds no hepatosplenomegaly Extremities. Right wrist and hand erythema and edematous. Left leg warm and swollenn Neuro dementia. Alert - Labs CBC & Chem 7: 03/04/19 07:54 03/04/19 07:54 Labs: Abnormal Lab Results - Last 24 Hours (Table) 03/03/19 03/03/19 03/03/19 Range/Units 09:33 11:40 13:02 RBC 3.66 L (4.30-5.90) m/uL Hgb 11.0 L (13.0-17.5) gm/dL Hct 32.9 L (39.0-53.0) % Neutrophils # (1.3-7.7) k/uL Lymphocytes # 0.7 L (1.0-4.8) k/uL APTT (22.0-30.0) sec BUN (9-20) mg/dL Creatinine (0.66-1.25) mg/dL Glucose (74-99) mg/dL POC Glucose (mg/dL) 271 H (75-99) mg/dL Hemoglobin A1c 6.3 H (4.0-6.0) % Calcium (8.4-10.2) mg/dL Alkaline Phosphatase (38-126) U/L 03/03/19 03/03/19 03/03/19 Range/Units 16:40 19:00 20:44 RBC (4.30-5.90) m/uL Hgb (13.0-17.5) gm/dL Hct (39.0-53.0) % Neutrophils # (1.3-7.7) k/uL Lymphocytes # (1.0-4.8) k/uL APTT 109.7 H* (22.0-30.0) sec BUN (9-20) mg/dL Creatinine (0.66-1.25) mg/dL Glucose (74-99) mg/dL POC Glucose (mg/dL) 266 H 340 H (75-99) mg/dL Hemoglobin A1c (4.0-6.0) % Calcium (8.4-10.2) mg/dL Alkaline Phosphatase (38-126) U/L 03/04/19 03/04/19 03/04/19 Range/Units 02:20 07:12 07:54 RBC 3.99 L (4.30-5.90) m/uL Hgb 12.0 L (13.0-17.5) gm/dL Hct 36.1 L (39.0-53.0) % Neutrophils # 9.1 H (1.3-7.7) k/uL Lymphocytes # 0.8 L (1.0-4.8) k/uL APTT 34.8 H (22.0-30.0) sec BUN (9-20) mg/dL Creatinine (0.66-1.25) mg/dL Glucose (74-99) mg/dL POC Glucose (mg/dL) 277 H (75-99) mg/dL Hemoglobin A1c (4.0-6.0) % Calcium (8.4-10.2) mg/dL Alkaline Phosphatase (38-126) U/L 03/04/19 03/04/19 Range/Units 07:54 07:54 RBC (4.30-5.90) m/uL Hgb (13.0-17.5) gm/dL Hct (39.0-53.0) % Neutrophils # (1.3-7.7) k/uL Lymphocytes # (1.0-4.8) k/uL APTT 66.6 H (22.0-30.0) sec BUN 30 H (9-20) mg/dL Creatinine 1.26 H (0.66-1.25) mg/dL Glucose 266 H (74-99) mg/dL POC Glucose (mg/dL) (75-99) mg/dL Hemoglobin A1c (4.0-6.0) % Calcium 10.3 H (8.4-10.2) mg/dL Alkaline Phosphatase 177 H (38-126) U/L Microbiology - Last 24 Hours (Table) 03/03/19 09:05 Urine Culture - Final Urine,Clean Catch 03/02/19 18:15 Blood Culture - Preliminary Blood No Growth after 24 hours Assessment and Plan Assessment: 1. Right hand cellulitis. Venous Doppler negative for DVT in right upper extremity Patient started on vancomycin and Rocephin. Uric acid level 7.8. Dr. Guillory is following for infectious disease. A silicone wrap has been requested for right arm. Patient currently on vancomycin for IV antibiotics. Per infectious disease patient may require ongoing IV antibiotic therapy. 2. Acute kidney injury. Creatinine elevated at 1.85 and bun 50. Patient's home medication of losartan hydrochlorothiazide currently on hold. Repeat labs have been ordered creatinine 1.26 bun 30. 3. Urinary tract infection. UA positive for the same Estrace. Urine culture ordered. Patient currently maintained on vancomycin and Rocephin 4. Lower extremity DVT. Venous Doppler completed showing DVt. started on heparin drip. Management consulted for anticoagulation 5. Dementia. 6. Diabetes mellitus. Patient currently not on any oral agents. Blood sugar is elevated. Sliding scale insulin ordered. A1c 6.3 7. History of BPH 8. History of hyperlipidemia 9. History of essential hypertension. Patient's blood pressure elevated. Home medication of losartan Hydrocort thiazide currently on hold due to acute kidney injury. Hydralazine 25 mg 3 times a day has been added 10. Hypothyroidism 11. Elevated liver enzymes. ALT 85 alkaline phosphatase 183. Statin currently on hold. Repeat labs ordered. Labs are trending down DVT prophylaxis heparin drip. GI prophylaxis Protonix Case management consulted for anticoagulation Social work consulted for discharge planning I performed an examination of the patient and discussed their management with the Nurse Practitioner. I have reviewed the Nurse Practitioner's notes and agree with the documented findings and plan of care
[2019-03-04 11:58] LABS: Glucose,Whole Blood 340 mg/dL (75-99)
[2019-03-04] MEDS: SODIUM CHLORIDE 0.9% 1,000 ML IV SCH (12:21)
[2019-03-04] MEDS: methylPREDNISolone SOD SUCCI 40 MG/ML 1 ML VIAL IV SCH ×2 (16:00→23:14)
[2019-03-04 16:50] LABS: Glucose,Whole Blood 275 mg/dL (75-99)
[2019-03-04 20:47] LABS: Glucose,Whole Blood 190 mg/dL (75-99)
[2019-03-05] MEDS: SODIUM CHLORIDE 0.9% 1,000 ML IV SCH ×2 (01:06→13:18)
[2019-03-05] MEDS: LEVOTHYROXINE 50 MCG TAB PO SCH (05:18)
--- NOTE | 2019-03-05 06:10 | P.CONS ---
History of Present Illness - Chief Complaint Walking difficulty - History of Present Illness I had the opportunity to see patient for inpatient rehab consultation regard to walking difficulty. [facility] 3 days duration. Seen in consultation by Dr. Guilolry for this. X-ray right and demonstrates osteophyte arthritis, chondrocalcinosis and swelling. X-ray right wrist demonstrates chondrocalcinosis. X-ray right elbow demonstrates osteoarthritis. Negative Doppler right arm and both legs. I have added PT and OT at this time. Previous functional history as elicited from patient which may be an questioned as patient has dementia: 64-year-old right-handed white male who is and lives in one floor home with . Patient semiretired. does the cooking and laundry. Both drive. Patient independent with standing shower and gait without device. History smoking and a very rare drink. Dr. Kalin Sanford is regular doctor. Review of Systems Review of systems: Patient poor historian and gleaned from chart and exam of patient. Skin: Cellulitic areas both arms requiring dressings. ENT: Denies sneezes or discharge. Eyes: Denies discharge or photophobia. Cardiac: Denies chest pain or palpitation. Pulmonary: Denies cough or shortness of breath. Gastrointestinal: Denies nausea, emesis, constipation, diarrhea. Genitourinary: Denies discharge or frequency. Musculoskeletal: Right hand cellulitis and swelling. Neurologic: Denies motor or sensory change. Endocrine: Denies shakes or sweats. Oncology: Denies cancers. Dermatologic: Denies rash, itching, pruritus. ALLERGY/immunology: Denies sneezes, rashes. Past Medical History Past Medical History: Coronary Artery Disease (CAD), Dementia, Diabetes Mellitus, Hyperlipidemia, Hypertension, Thyroid Disorder History of Any Multi-Drug Resistant Organisms: None Reported Additional Past Surgical History / Comment(s): toe amputation Past Anesthesia/Blood Transfusion Reactions: No Reported Reaction Past Psychological History: No Psychological Hx Reported Additional Psychological History / Comment(s): to his second . Adult children. No tobacco use. Retired. No experience. No animals in the home. No international travel Smoking Status: Never smoker Past Alcohol Use History: None Reported Past Drug Use History: None Reported - Past Family History Brother(s) Family Medical History: Diabetes Mellitus Medications and Allergies Home Medications Medication Instructions Recorded Confirmed Type Ascorbic Acid [Vitamin C] 500 mg PO DAILY 03/02/19 03/02/19 History Cholecalciferol [Vitamin D3] 1,000 unit PO DAILY 03/02/19 03/02/19 History Cyanocobalamin (Vitamin B-12) 1,000 mcg PO DAILY 03/02/19 03/02/19 History [Vitamin B-12] Donepezil [Aricept] 10 mg PO DAILY 03/02/19 03/02/19 History Levothyroxine Sodium [Synthroid] 50 mcg PO DAILY 03/02/19 03/02/19 History Losartan/Hydrochlorothiazide 1 tab PO DAILY 03/02/19 03/02/19 History [Hyzaar 100-25 Tablet] Mirabegron [Myrbetriq] 25 mg PO DAILY 03/02/19 03/02/19 History Mirabegron [Myrbetriq] 50 mg PO DAILY 03/02/19 03/02/19 History NIFEdipine XL [Procardia XL] 60 mg PO DAILY 03/02/19 03/02/19 History Pantoprazole Sodium [Protonix] 40 mg PO DAILY 03/02/19 03/02/19 History Ranitidine HCl [Zantac] 300 mg PO DAILY 03/02/19 03/02/19 History Simvastatin [Zocor] 10 mg PO DAILY 03/02/19 03/02/19 History Tamsulosin HCl [Flomax] 0.8 mg PO DAILY 03/02/19 03/02/19 History Prazosin [Minipress] 5 mg PO DAILY 03/03/19 03/03/19 History Prazosin [Minipress] 10 mg PO HS 03/03/19 03/03/19 History Allergies Allergy/AdvReac Type Severity Reaction Status Date / Time No Known Allergies Allergy Verified 03/02/19 20:43 Physical Exam Vitals: Vital Signs Temp Pulse Resp BP Pulse Ox 03/05/19 06:03 97.4 F L 81 18 161/66 94 L 03/04/19 21:27 97.7 F 75 18 155/61 92 L 03/04/19 12:38 97.3 F L 75 18 112/55 95 03/04/19 10:30 120/52 Intake and Output 03/04/19 03/04/19 03/05/19 14:59 22:59 06:59 Intake Total 628.689 234.569 Balance 628.689 234.569 Intake: Intake, IV Titration 88.689 234.569 Amount Heparin Sod,Pork in 0.45% 88.689 234.569 NaCl 25,000 unit In 0.45 % NaCl 1 250ml.bag @ 18 UNITS/KG/HR 15.594 mls/hr IV .Q16H2M [facility] Rx#: [id number] Oral 540 Other: Voiding Method Incontinent Incontinent # Voids 1 1 2 # Bowel Movements 1 Skin: Dressings noted both arms and right hand. General: Medium build and comfortable appearance. Head: Normocephalic, atraumatic. Eyes: Symmetric. Pupils equal round. Ears: Symmetric. Hearing within normal limits. Mouth: Clear. Neck: Supple. Carotid without bruit. Cardiac: Regular rate and rhythm. Lungs: Clear anteriorly and posteriorly. Abdomen: Soft active nontender. Extremities: Normal tone. Neurological: Mental status: Alert, cooperative, pleasant but confused. Cranial nerves: Symmetric facial tone and trapezius. Motor: Can actively elevate all 4 limbs. Sensation: Intact throughout. DTRs: Symmetric and equal throughout. Mobility: Requires assistance for bed mobility. Results CBC & Chem 7: 03/04/19 07:54 03/04/19 07:54 Labs: Abnormal Lab Results - Last 24 Hours (Table) 03/04/19 03/04/19 03/04/19 Range/Units 07:12 07:54 07:54 RBC 3.99 L (4.30-5.90) m/uL Hgb 12.0 L (13.0-17.5) gm/dL Hct 36.1 L (39.0-53.0) % Neutrophils # 9.1 H (1.3-7.7) k/uL Lymphocytes # 0.8 L (1.0-4.8) k/uL APTT (22.0-30.0) sec BUN 30 H (9-20) mg/dL Creatinine 1.26 H (0.66-1.25) mg/dL Glucose 266 H (74-99) mg/dL POC Glucose (mg/dL) 277 H (75-99) mg/dL Calcium 10.3 H (8.4-10.2) mg/dL Alkaline Phosphatase 177 H (38-126) U/L 03/04/19 03/04/19 03/04/19 Range/Units 07:54 11:42 16:33 RBC (4.30-5.90) m/uL Hgb (13.0-17.5) gm/dL Hct (39.0-53.0) % Neutrophils # (1.3-7.7) k/uL Lymphocytes # (1.0-4.8) k/uL APTT 66.6 H (22.0-30.0) sec BUN (9-20) mg/dL Creatinine (0.66-1.25) mg/dL Glucose (74-99) mg/dL POC Glucose (mg/dL) 340 H 275 H (75-99) mg/dL Calcium (8.4-10.2) mg/dL Alkaline Phosphatase (38-126) U/L 03/04/19 Range/Units 20:46 RBC (4.30-5.90) m/uL Hgb (13.0-17.5) gm/dL Hct (39.0-53.0) % Neutrophils # (1.3-7.7) k/uL Lymphocytes # (1.0-4.8) k/uL APTT (22.0-30.0) sec BUN (9-20) mg/dL Creatinine (0.66-1.25) mg/dL Glucose (74-99) mg/dL POC Glucose (mg/dL) 190 H (75-99) mg/dL Calcium (8.4-10.2) mg/dL Alkaline Phosphatase (38-126) U/L Microbiology - Last 24 Hours (Table) 03/02/19 18:15 Blood Culture - Preliminary Blood No Growth after 48 hours 03/03/19 09:05 Urine Culture - Final Urine,Clean Catch Assessment and Plan (1) Acute kidney injury Current Visit: Yes Status: Acute Code(s): N17.9 - ACUTE KIDNEY FAILURE, UNSPECIFIED SNOMED Code(s): 02322886 (2) Cellulitis of hand Current Visit: Yes Status: Acute Code(s): L03.119 - CELLULITIS OF UNSPECIFIED PART OF LIMB SNOMED Code(s): 94184914 Plan: Impression: 1. Walking difficulty. 2. Cellulitis both arms including right hand. 3. Acute kidney injury. 4. UTI. 5. Hypertension. 6. Dyslipidemia. 7. Diabetes. 8. Dementia. 9. Coronary artery disease. Comments and plan: At this time prescribed PT and OT. Follow therapies with yourself for possible need and benefit of inpatient rehab. Unsure patient has appropriate diagnosis for inpatient rehab. Insurance criteria though.
[2019-03-05 06:54] LABS: Glucose,Whole Blood 313 mg/dL (75-99)
[2019-03-05] MEDS: methylPREDNISolone SOD SUCCI 40 MG/ML 1 ML VIAL IV SCH ×2 (07:36→15:25)
[2019-03-05] MEDS: PANTOPRAZOLE 40 MG TABLET PO SCH (07:36)
[2019-03-05] MEDS: ALLOPURINOL 100 MG TAB PO SCH (07:36)
[2019-03-05] MEDS: hydrALAZINE HCL 25 MG TAB PO SCH ×3 (07:37→20:43)
[2019-03-05] MEDS: FAMOTIDINE 20 MG TAB PO SCH (07:37)
[2019-03-05] MEDS: TAMSULOSIN 0.4 MG CAP.ER.24H PO SCH (07:37)
[2019-03-05] MEDS: PRAZOSIN 1 MG CAP PO SCH ×2 (07:39→20:43)
[2019-03-05] MEDS: INSULIN ASPART (NovoLOG) 100 UNIT/ML VIAL SQ SCH ×4 (07:39→20:44)
[2019-03-05] MEDS: Mirabegron [Myrbetriq] PO SCH ×2 (07:40)
[2019-03-05] MEDS: VANCOMYCIN 1,500 MG in SODIUM CHLORIDE 0.9% 250 ML IVPB SCH (07:45)
[2019-03-05] MEDS: DONEPEZIL 10 MG TAB PO SCH (07:46)
[2019-03-05 08:49] LABS: Basophils % (A) 0 %; Eosinophils % (A) 0 %; HCT 34.4 % (39.0-53.0); HGB 11.1 gm/dL (13.0-17.5); Lymphocytes # (A) 0.6 k/uL (1.0-4.8); Lymphocytes % (A) 7 %; MCH 29.4 pg (25.0-35.0); MCHC 32.3 g/dL (31.0-37.0); MCV 91.1 fL (80.0-100.0); Mean Platelet Volume 8.8; Monocytes # (A) 0.2 k/uL (0-1.0); Monocytes % (A) 2 %; Neutrophils # (A) 7.4 k/uL (1.3-7.7); Neutrophils % (A) 91 %; Platelet Count 203 k/uL (150-450); RBC 3.78 m/uL (4.30-5.90); WBC 8.2 k/uL (3.8-10.6)
[2019-03-05] MEDS: HEPARIN SOD,PORK IN 0.45% NACL 25,000 UNIT in 0.45% NACL 1 250ML.BAG IV SCH ×2 (09:04→20:44)
[2019-03-05 09:24] LABS: Albumin 3.4 g/dL (3.5-5.0); Calcium 10.1 mg/dL (8.4-10.2); Potassium 4.4 mmol/L (3.5-5.1); Total Bilirubin 0.5 mg/dL (0.2-1.3)
[2019-03-05] MEDS ORDERED: VANCOMYCIN IV PER PHARMACY 1 EACH MISC MISCELLANE PRN (10:19)
[2019-03-05 11:24] LABS: Glucose,Whole Blood 276 mg/dL (75-99)
[2019-03-05] MEDS ORDERED: APIXABAN 2.5 MG TABLET PO SCH (13:15)
--- NOTE | 2019-03-05 13:28 | P.PN ---
Subjective Progress Note Date: 03/05/19 This is an 83-year-old male patient of Dr. velasquez. Patient presented with complaints of increased redness and swelling to right hand. The pharmacy per ER report. Noticed hand was swollen on Saturday. There is no evidence of fall or injury. Patient's did notice a small abrasion to the right posterior elbow. Patient does have a past medical history of advanced dementia, coronary artery disease, diabetes mellitus, hyperlipidemia, hypertension and hypothyroidism.right hand x-ray completed showing soft tissue swelling. Osteoarthritis and chrondrocalcinosis. There is some tumoral calcinosis around the MP joints no fracture seen. Right wrist x-ray is showing chondrocalcinosis no fracture seen soft tissue swelling. Right elbow x-ray completed showing hypertrophic osteophytes. No fracture seen. Venous Doppler completed showing no evidence of DVT in right arm. Blood culture ordered. Patient's creatinine also elevated at 1.[address] Guillory has been consulted for infectious disease. Patient started on Rocephin and vancomycin. UA also positive for leukocyte esterase. Patient also having increased swelling to left lower extremity. Venous Doppler has been ordered. At this time patient denies chest pain or shortness breath. Patient denies nausea vomiting or diarrhea. Patient denies any urinary burning or frequency. On 03/04/2019 patient currently resting comfortably in bed. Patient was positive for DVT in left lower extremity. Started on heparin drip. Patient remains on vancomycin for right hand and wrist cellulitis. Dr. Guillory is following. Cultures pending. Creatinine improving to 1.26. Patient did have hypotension throughout night 180s to 200s. Hydralazine 25 3 times a day has been added. At this time patient denies pain or shortness of breath. Patient denies any nausea or vomiting. Denies any urinary burning or frequency. On 03/05/2019 patient is resting comfortably in bed. Hand does appear slightly improved. Patient maintained on vancomycin per infectious disease. Patient may possibly need IV antibiotics and discharge will likely require ECF. Patient has been started on eliquis reticulation for DVT. At this time patient denies chest pain or shortness of breath. Patient denies nausea vomiting or diarrhea. Patient denies any urinary burning or frequency. Objective - Vital Signs Vital signs: Vital Signs Temp 97.4 F L 03/05/19 11:44 Pulse 81 03/05/19 11:44 Resp 18 03/05/19 11:44 BP 177/78 03/05/19 11:44 Pulse Ox 96 03/05/19 11:44 Intake & Output 03/04/19 03/05/19 03/05/19 18:59 06:59 18:59 Intake Total 628.689 234.569 161.592 Balance 628.689 234.569 161.592 Intake: Intake, IV Titration 88.689 234.569 161.592 Amount Heparin Sod,Pork in 0.45% 88.689 234.569 161.592 NaCl 25,000 unit In 0.45 % NaCl 1 250ml.bag @ 18 UNITS/KG/HR 15.594 mls/hr IV .Q16H2M [facility] Rx#: [id number] Oral 540 Other: Voiding Method Incontinent Incontinent Toilet Incontinent # Voids 1 2 1 # Bowel Movements 1 1 - Exam Head normocephalic Neck supple Lungs clear to auscultation bilaterally no wheezing or crackles Heart regular rate and rhythm S1-S2, no rub or gallop Abdomen is soft nontender nondistended positive bowel sounds no hepatosplenomegaly Extremities. Right wrist and hand erythema and edematous. Left leg warm and swollenn Neuro dementia. Alert - Labs CBC & Chem 7: 03/05/19 07:55 03/05/19 07:55 Labs: Abnormal Lab Results - Last 24 Hours (Table) 03/04/19 03/04/19 03/05/19 Range/Units 16:33 20:46 06:52 RBC (4.30-5.90) m/uL Hgb (13.0-17.5) gm/dL Hct (39.0-53.0) % Lymphocytes # (1.0-4.8) k/uL APTT (22.0-30.0) sec Carbon Dioxide (22-30) mmol/L BUN (9-20) mg/dL Creatinine (0.66-1.25) mg/dL Glucose (74-99) mg/dL POC Glucose (mg/dL) 275 H 190 H 313 H (75-99) mg/dL Alkaline Phosphatase (38-126) U/L Total Protein (6.3-8.2) g/dL Albumin (3.5-5.0) g/dL 03/05/19 03/05/19 03/05/19 Range/Units 07:55 07:55 07:55 RBC 3.78 L (4.30-5.90) m/uL Hgb 11.1 L (13.0-17.5) gm/dL Hct 34.4 L (39.0-53.0) % Lymphocytes # 0.6 L (1.0-4.8) k/uL APTT 36.4 H (22.0-30.0) sec Carbon Dioxide 21 L (22-30) mmol/L BUN 38 H (9-20) mg/dL Creatinine 1.83 H (0.66-1.25) mg/dL Glucose 306 H (74-99) mg/dL POC Glucose (mg/dL) (75-99) mg/dL Alkaline Phosphatase 143 H (38-126) U/L Total Protein 6.0 L (6.3-8.2) g/dL Albumin 3.4 L (3.5-5.0) g/dL 03/05/19 Range/Units 11:23 RBC (4.30-5.90) m/uL Hgb (13.0-17.5) gm/dL Hct (39.0-53.0) % Lymphocytes # (1.0-4.8) k/uL APTT (22.0-30.0) sec Carbon Dioxide (22-30) mmol/L BUN (9-20) mg/dL Creatinine (0.66-1.25) mg/dL Glucose (74-99) mg/dL POC Glucose (mg/dL) 276 H (75-99) mg/dL Alkaline Phosphatase (38-126) U/L Total Protein (6.3-8.2) g/dL Albumin (3.5-5.0) g/dL Microbiology - Last 24 Hours (Table) 03/02/19 18:15 Blood Culture - Preliminary Blood No Growth after 48 hours 03/03/19 09:05 Urine Culture - Final Urine,Clean Catch Assessment and Plan Assessment: 1. Right hand cellulitis. Venous Doppler negative for DVT in right upper extremity Patient started on vancomycin and Rocephin. Uric acid level 7.8. Dr. Guillory is following for infectious disease. A silicone wrap has been requested for right arm. Patient currently on vancomycin for IV antibiotics. Per infectious disease patient may require ongoing IV antibiotic therapy. 2. Acute kidney injury. Creatinine elevated at 1.85 and bun 50. Patient's home medication of losartan hydrochlorothiazide currently on hold. Creatinine 1.83 and bun 30 3. Urinary tract infection. UA positive for the same Estrace. Urine culture ordered. Patient currently maintained on vancomycin and Rocephin 4. Lower extremity DVT. Venous Doppler completed showing DVt. started on heparin drip. Heparin drip discontinued. Patient started on eliquis 2.5 twice a day 5. Dementia. 6. Diabetes mellitus. Patient currently not on any oral agents. Blood sugar is elevated. Sliding scale insulin ordered. A1c 6.3 7. History of BPH 8. History of hyperlipidemia 9. History of essential hypertension. Patient's blood pressure elevated. Home medication of losartan Hydrocort thiazide currently on hold due to acute kidney injury. Hydralazine 25 mg 3 times a day has been added 10. Hypothyroidism 11. Elevated liver enzymes. ALT 85 alkaline phosphatase 183. Statin currently on hold. Repeat labs ordered. Labs are trending down DVT prophylaxis heparin drip. GI prophylaxis Protonix Case management consulted for anticoagulation Social work consulted for discharge planning I performed an examination of the patient and discussed their management with the Nurse Practitioner. I have reviewed the Nurse Practitioner's notes and agree with the documented findings and plan of care
[2019-03-05 17:16] LABS: Glucose,Whole Blood 230 mg/dL (75-99)
[2019-03-05 20:16] LABS: Glucose,Whole Blood 174 mg/dL (75-99)
--- NOTE | 2019-03-05 22:18 | P.PN ---
Subjective Progress Note Date: 03/05/19 83-year-old male was cared for the family home setting by his of 25 years relates that the patient has been having a decline of his status. He has known dementia which has now had some acute worsening as he is become ill. To arise from the toilet he places his left arm and a culture in the right arm rests on a toilet tissue velazquez. Apparently(with some metal scrolling and resulted in a small scrape onto the arm. He now is developed significant swelling from the hand to proximal to the elbow. The patient developed some fever has not been feeling well. With this he was brought into hospital and consult was requested. Patient was also noticed to have left lower extremity swelling. Flexion evidence of a deep venous thrombosis and heparin has been started. Duplex the right arm without evidence of clot. Patient without new acute complaint. Comfortable sitting up in a chair. Significant dementia. Objective - Vital Signs Vital signs: Vital Signs Temp 97.7 F 03/05/19 20:29 Pulse 76 03/05/19 20:29 Resp 18 03/05/19 20:29 BP 175/66 03/05/19 20:29 Pulse Ox 95 03/05/19 20:29 Intake & Output 03/05/19 03/05/19 03/06/19 06:59 18:59 06:59 Intake Total 234.569 161.592 Balance 234.569 161.592 Intake: Intake, IV Titration 234.569 161.592 Amount Heparin Sod,Pork in 0.45% 234.569 161.592 NaCl 25,000 unit In 0.45 % NaCl 1 250ml.bag @ 18 UNITS/KG/HR 15.594 mls/hr IV .Q16H2M [facility] Rx#: [id number] Other: Voiding Method Incontinent Toilet Toilet Incontinent Incontinent # Voids 2 1 # Bowel Movements 1 - Exam 83-year-old male who is not in jemal distress but seems somewhat uncomfortable. Does complain of some right arm discomfort. HEENT: Anicteric conjunctiva are pink and moist nasal mucosa grossly intact without significant lesions, there is no thrush. Dentures in place Neck: The neck is supple without significant lymphadenopathy or thyromegaly. Lungs: Good bilateral air entry without significant crackles or wheezing. There is no significant bronchial sounds. There is no egophony or dullness. Heart: Irregular with an audible S1 and S2 soft S4 and loud 2/6 systolic murmur left sternal border to the axilla Extremities: Left upper extremity without acute lesions. The right arm shows a marked improvement over the last day with the topical therapy wrap elevation in warmth. There are no open lesions There is minimal right axillary tenderness. Left arm without acute changes. Left leg has evidence of edema compared to the right. Neuro: Patient is awake and alert. Relates that he and the used to winter in [place]. 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 The patient's relates that he is completely confabulating. - Labs CBC & Chem 7: 03/05/19 07:55 03/05/19 07:55 Labs: Abnormal Lab Results - Last 24 Hours (Table) 03/05/19 03/05/19 03/05/19 Range/Units 06:52 07:55 07:55 RBC 3.78 L (4.30-5.90) m/uL Hgb 11.1 L (13.0-17.5) gm/dL Hct 34.4 L (39.0-53.0) % Lymphocytes # 0.6 L (1.0-4.8) k/uL APTT (22.0-30.0) sec Carbon Dioxide 21 L (22-30) mmol/L BUN 38 H (9-20) mg/dL Creatinine 1.83 H (0.66-1.25) mg/dL Glucose 306 H (74-99) mg/dL POC Glucose (mg/dL) 313 H (75-99) mg/dL Alkaline Phosphatase 143 H (38-126) U/L Total Protein 6.0 L (6.3-8.2) g/dL Albumin 3.4 L (3.5-5.0) g/dL 03/05/19 03/05/19 03/05/19 Range/Units 07:55 11:23 17:14 RBC (4.30-5.90) m/uL Hgb (13.0-17.5) gm/dL Hct (39.0-53.0) % Lymphocytes # (1.0-4.8) k/uL APTT 36.4 H (22.0-30.0) sec Carbon Dioxide (22-30) mmol/L BUN (9-20) mg/dL Creatinine (0.66-1.25) mg/dL Glucose (74-99) mg/dL POC Glucose (mg/dL) 276 H 230 H (75-99) mg/dL Alkaline Phosphatase (38-126) U/L Total Protein (6.3-8.2) g/dL Albumin (3.5-5.0) g/dL 03/05/19 Range/Units 20:15 RBC (4.30-5.90) m/uL Hgb (13.0-17.5) gm/dL Hct (39.0-53.0) % Lymphocytes # (1.0-4.8) k/uL APTT (22.0-30.0) sec Carbon Dioxide (22-30) mmol/L BUN (9-20) mg/dL Creatinine (0.66-1.25) mg/dL Glucose (74-99) mg/dL POC Glucose (mg/dL) 174 H (75-99) mg/dL Alkaline Phosphatase (38-126) U/L Total Protein (6.3-8.2) g/dL Albumin (3.5-5.0) g/dL Microbiology - Last 24 Hours (Table) 03/02/19 18:15 Blood Culture - Preliminary Blood No Growth after 48 hours Laboratory Results WBC 8.2 k/uL (3.8-10.6) 03/05/19 07:55 RBC 3.78 m/uL (4.30-5.90) L 03/05/19 07:55 Hgb 11.1 gm/dL (13.0-17.5) L 03/05/19 07:55 Hct 34.4 % (39.0-53.0) L 03/05/19 07:55 MCV 91.1 fL (80.0-100.0) 03/05/19 07:55 MCH 29.4 pg (25.0-35.0) 03/05/19 07:55 MCHC 32.3 g/dL (31.0-37.0) 03/05/19 07:55 RDW 14.0 % (11.5-15.5) 03/05/19 07:55 Plt Count 203 k/uL (150-450) 03/05/19 07:55 Neutrophils % 91 % 03/05/19 07:55 Lymphocytes % 7 % 03/05/19 07:55 Monocytes % 2 % 03/05/19 07:55 Eosinophils % 0 % 03/05/19 07:55 Basophils % 0 % 03/05/19 07:55 Neutrophils # 7.4 k/uL (1.3-7.7) 03/05/19 07:55 Lymphocytes # 0.6 k/uL (1.0-4.8) L 03/05/19 07:55 Monocytes # 0.2 k/uL (0-1.0) 03/05/19 07:55 Eosinophils # 0.0 k/uL (0-0.7) 03/05/19 07:55 Basophils # 0.0 k/uL (0-0.2) 03/05/19 07:55 ESR 48 mm/hr (0-15) H 03/02/19 18:15 PT 10.5 sec (9.0-12.0) 03/03/19 13:02 INR 1.0 (<1.2) 03/03/19 13:02 APTT 36.4 sec (22.0-30.0) H 03/05/19 07:55 Sodium 137 mmol/L (137-145) 03/05/19 07:55 Potassium 4.4 mmol/L (3.5-5.1) 03/05/19 07:55 Chloride 107 mmol/L (98-107) 03/05/19 07:55 Carbon Dioxide 21 mmol/L (22-30) L 03/05/19 07:55 Anion Gap 9 mmol/L 03/05/19 07:55 BUN 38 mg/dL (9-20) H 03/05/19 07:55 Creatinine 1.83 mg/dL (0.66-1.25) H 03/05/19 07:55 Est GFR (CKD-EPI)AfAm 38 (>60 ml/min/1.73 sqM) 03/05/19 07:55 Est GFR (CKD-EPI)NonAf 33 (>60 ml/min/1.73 sqM) 03/05/19 07:55 Glucose 306 mg/dL (74-99) H 03/05/19 07:55 POC Glucose (mg/dL) 174 mg/dL (75-99) H 03/05/19 20:15 POC Glu Smoke Jumper ID Alexa Lim 03/05/19 20:[address] Glu mg/dL 134 03/03/19 09:33 Hemoglobin A1c 6.3 % (4.0-6.0) H 03/03/19 09:33 Uric Acid 7.8 mg/dL (3.5-8.5) 03/03/19 13:02 Calcium 10.1 mg/dL (8.4-10.2) 03/05/19 07:55 Total Bilirubin 0.5 mg/dL (0.2-1.3) 03/05/19 07:55 AST 23 U/L (17-59) 03/05/19 07:55 ALT 58 U/L (21-72) 03/05/19 07:55 Alkaline Phosphatase 143 U/L (38-126) H 03/05/19 07:55 C-Reactive Protein 44.6 mg/L (<10.0) H 03/02/19 18:15 Total Protein 6.0 g/dL (6.3-8.2) L 03/05/19 07:55 Albumin 3.4 g/dL (3.5-5.0) L 03/05/19 07:55 Urine Color Yellow 03/03/19 09:05 Urine Appearance Cloudy (Clear) 03/03/19 09:05 Urine pH 5.5 (5.0-8.0) 03/03/19 09:05 Ur Specific Marshall 1.015 (1.001-1.035) 03/03/19 09:05 Urine Protein Trace (Negative) H 03/03/19 09:05 Urine Glucose (UA) Negative (Negative) 03/03/19 09:05 Urine Ketones Negative (Negative) 03/03/19 09:05 Urine Blood Trace (Negative) H 03/03/19 09:05 Urine Nitrite Negative (Negative) 03/03/19 09:05 Urine Bilirubin Negative (Negative) 03/03/19 09:05 Urine Urobilinogen <2.0 mg/dL (<2.0) 03/03/19 09:05 Ur Leukocyte Esterase Large (Negative) H 03/03/19 09:05 Urine RBC 4 /hpf (0-5) 03/03/19 09:05 Urine WBC >182 /hpf (0-5) H 03/03/19 09:05 Urine WBC Clumps Occasional /hpf (None) H 03/03/19 09:05 Urine Bacteria Occasional /hpf (None) H 03/03/19 09:05 Stool Occult Blood Negative (Negative) 03/03/19 17:04 Random Vancomycin 11.0 ug/mL 03/04/19 07:54 Microbiology 03/02/19 18:15 Blood Blood Culture - Preliminary No Growth after 48 hours 03/03/19 09:05 Urine,Clean Catch Urine Culture - Final Assessment and Plan (1) Cellulitis of right arm Narrative/Plan: 83-year-old male is brought to Hospital by his because of worsening of his overall status. He has underlying dementia but seemed to have worsening as the pain swelling and redness to his right arm worsened. There is evidence of the cellulitis of the arm and antibiotic therapy with ceftriaxone and vancomycin have been started. Cultures are process. A Silvadene wrap is been requested for the right arm and addition of elevation a couple pillows will be helpful. The left leg is evidence of the acute deep venous thrombosis and is being anticoagulated. The patient may require ongoing intravenous antibiotic therapy and likely will go to rehabilitation to complete physical therapy and antibiotic therapy at discharge. 03/05/2019 patient has not been improvement of the swelling tenderness and erythema to the right arm. Showing a good response to current antibiotic therapy and local wound care. The patient will likely transition to rehab in the near future. We'll continue with some local wound care to the right arm until it's completely healed with the Silvadene wrap and some elevation. Antibiotic therapy may be transitioned to oral Keflex 500 mg every 8 hours for 7 days at the time of discharge. Current Visit: Yes Status: Acute Code(s): L03.113 - CELLULITIS OF RIGHT UPPER LIMB SNOMED Code(s): 190244509 (2) Cellulitis of hand Current Visit: Yes Status: Acute Code(s): L03.119 - CELLULITIS OF UNSPECIFIED PART OF LIMB SNOMED Code(s): 96704503 (3) Dementia Current Visit: Yes Status: Acute Code(s): F03.90 - UNSPECIFIED DEMENTIA WITHOUT BEHAVIORAL DISTURBANCE SNOMED Code(s): 94993029 (4) Left leg DVT Current Visit: Yes Status: Acute Code(s): I82.402 - ACUTE EMBOLISM AND T HOMBOS UNSP DEEP VEINS OF L LOW EXTREM SNOMED Code(s): 894090732
[2019-03-06] MEDS: SODIUM CHLORIDE 0.9% 1,000 ML IV SCH (04:29)
[2019-03-06 05:03] VITALS: TEMP 97.8
[2019-03-06] MEDS: LEVOTHYROXINE 50 MCG TAB PO SCH (05:41)
[2019-03-06] MEDS: Mirabegron [Myrbetriq] PO SCH ×2 (07:15→07:28)
[2019-03-06 07:16] LABS: Glucose,Whole Blood 178 mg/dL (75-99)
[2019-03-06] MEDS: ALLOPURINOL 100 MG TAB PO SCH (07:19)
[2019-03-06] MEDS: TAMSULOSIN 0.4 MG CAP.ER.24H PO SCH (07:19)
[2019-03-06] MEDS: FAMOTIDINE 20 MG TAB PO SCH (07:19)
[2019-03-06] MEDS: INSULIN ASPART (NovoLOG) 100 UNIT/ML VIAL SQ SCH ×3 (07:19→17:33)
[2019-03-06] MEDS: hydrALAZINE HCL 25 MG TAB PO SCH ×2 (07:19→15:08)
[2019-03-06] MEDS: PANTOPRAZOLE 40 MG TABLET PO SCH (07:19)
[2019-03-06] MEDS: PRAZOSIN 1 MG CAP PO SCH (07:21)
[2019-03-06] MEDS: DONEPEZIL 10 MG TAB PO SCH (07:25)
[2019-03-06 07:35] LABS: Basophils % (A) 0 %; Eosinophils % (A) 0 %; HCT 34.1 % (39.0-53.0); HGB 11.3 gm/dL (13.0-17.5); Lymphocytes # (A) 1.3 k/uL (1.0-4.8); Lymphocytes % (A) 11 %; MCH 29.6 pg (25.0-35.0); MCHC 33.1 g/dL (31.0-37.0); MCV 89.6 fL (80.0-100.0); Mean Platelet Volume 8.8; Monocytes # (A) 0.6 k/uL (0-1.0); Monocytes % (A) 5 %; Neutrophils # (A) 10.1 k/uL (1.3-7.7); Neutrophils % (A) 83 %; Platelet Count 231 k/uL (150-450); RDW 14.3 % (11.5-15.5); WBC 12.1 k/uL (3.8-10.6)
[2019-03-06 07:50] LABS: Calcium 10.1 mg/dL (8.4-10.2); Potassium 4.2 mmol/L (3.5-5.1); Total Bilirubin 0.4 mg/dL (0.2-1.3); Total Protein 5.6 g/dL (6.3-8.2)
[2019-03-06 08:50] LABS: Vancomycin,Random 17.1 ug/mL
[2019-03-06] MEDS ORDERED: VANCOMYCIN 1,500 MG in SODIUM CHLORIDE 0.9% 250 ML IVPB ONE (10:00)
[2019-03-06 11:51] LABS: Glucose,Whole Blood 181 mg/dL (75-99)
[2019-03-06 12:50] VITALS: BP 174/77; PULSE 70; RESP 16
[2019-03-06] MEDS: CEPHALEXIN 500 MG CAP PO SCH ×2 (13:38→17:33)
[2019-03-06] MEDS: HEPARIN SOD,PORK IN 0.45% NACL 25,000 UNIT in 0.45% NACL 1 250ML.BAG IV SCH (13:43)
[2019-03-06] MEDS ORDERED: APIXABAN 5 MG TAB PO SCH (13:45)
--- NOTE | 2019-03-06 13:50 | P.DS ---
Providers Date of admission: 03/04/19 09:55 Expected date of discharge: 03/06/19 Attending physician: Alanna Wang Consults: 03/02/19 21:00 Consult Physician Routine Consulting Provider: Too Guillory Consult Reason/Comments: cellulitis hand Do you want consulting provider notified?: Yes, Notify in am 03/04/19 13:40 Consult Physician Routine Consulting Provider: Leonard Bishop Consult Reason/Comments: weakness Do you want consulting provider notified?: Yes Primary care physician: Nela Snider Hospital Course: Discharge diagnosis 1. Right hand cellulitis. Venous Doppler negative for DVT in right upper extremity Patient started on vancomycin and Rocephin. Uric acid level 7.8. Dr. Guillory is following for infectious disease. A silicone wrap has been requested for right arm. Patient currently on vancomycin for IV antibiotics. Per infectious disease continue Silvadene wrap and elevation. Patient to continue or Keflex 500 every 8 hours for 7 more days at discharge 2. Acute kidney injury. Creatinine elevated at 1.85 and bun 50. Patient's home medication of losartan hydrochlorothiazide currently on hold. Creatinine 1.83 and bun 30. Will Continue to monitor outpatient 3. Urinary tract infection. UA positive for the same Estrace. Urine culture ordered. Patient currently maintained on vancomycin and Rocephin 4. Lower extremity DVT. Venous Doppler completed showing DVt. started on heparin drip. Heparin drip discontinued. Patient started on eliquis 2.5 twice a day 5. Dementia. 6. Diabetes mellitus. Patient currently not on any oral agents. Blood sugar is elevated. Sliding scale insulin ordered. A1c 6.3 7. History of BPH 8. History of hyperlipidemia 9. History of essential hypertension. Patient's blood pressure elevated. Home medication of losartan Hydrocort thiazide currently on hold due to acute kidney injury. Hydralazine 25 mg 3 times a day has been added 10. Hypothyroidism 11. Elevated liver enzymes. ALT 85 alkaline phosphatase 183. Statin currently on hold. Repeat labs ordered. Labs are trending down 12. Gout. Uric acid level VII.8. Patient was given IV steroids plus started on allopurinol. 13. Hyperglycemia due to steroids. Hemoglobin A1c 6.3. No insulin at this time Hospital course This is an 83-year-old male patient of Dr. snider. Patient presented with complaints of increased redness and swelling to right hand. The pharmacy per ER report. Noticed hand was swollen on Saturday. There is no evidence of fall or injury. Patient's did notice a small abrasion to the right posterior elbow. Patient does have a past medical history of advanced dementia, coronary artery disease, diabetes mellitus, hyperlipidemia, hypertension and hypothyroidism.right hand x-ray completed showing soft tissue swelling. Osteoarthritis and chrondrocalcinosis. There is some tumoral calcinosis around the MP joints no fracture seen. Right wrist x-ray is showing chondrocalcinosis no fracture seen soft tissue swelling. Right elbow x-ray completed showing hypertrophic osteophytes. No fracture seen. Venous Doppler completed showing no evidence of DVT in right arm. Blood culture ordered. Patient's creatinine also elevated at 1.[address] Guillory has been consulted for infectious disease. Patient started on Rocephin and vancomycin. UA also positive for leukocyte esterase. Patient also having increased swelling to left lower extremity. Venous Doppler has been ordered. At this time patient denies chest pain or shortness breath. Patient denies nausea vomiting or diarrhea. Patient denies any urinary burning or frequency. On 03/04/2019 patient currently resting comfortably in bed. Patient was positive for DVT in left lower extremity. Started on heparin drip. Patient remains on vancomycin for right hand and wrist cellulitis. Dr. Guillory is following. Cultures pending. Creatinine improving to 1.26. Patient did have hypotension throughout night 180s to 200s. Hydralazine 25 3 times a day has been added. At this time patient denies pain or shortness of breath. Patient denies any nausea or vomiting. Denies any urinary burning or frequency. On 03/05/2019 patient is resting comfortably in bed. Hand does appear slightly improved. Patient maintained on vancomycin per infectious disease. Patient may possibly need IV antibiotics and discharge will likely require ECF. Patient has been started on eliquis reticulation for DVT. At this time patient denies chest pain or shortness of breath. Patient denies nausea vomiting or diarrhea. Patient denies any urinary burning or frequency. On 03/06/2019 patient is currently resting comfortably in bed. Patient's right hand has significantly improved. Per infectious disease patient does not look her IV antibiotics given discharged on oral Keflex 500 every 8 hours for 7 more days. Continue Silvadene dressing. Patient to discharged on eliquis twice a day for DVT in left lower extremity. Patient will be discharged to [facility] for rehab. At this time patient denies chest pain or shortness breath. Patient denies nausea vomiting or diarrhea. Patient denies any urinary burning or frequency. Patient's creatinine elevated at 1.83 this could be due to the vancomycin. We'll continue to monitor outpatient. I performed an examination of the patient and discussed their management with the Nurse Practitioner. I have reviewed the Nurse Practitioner's notes and agree with the documented findings and plan of care Patient Condition at Discharge: Stable Plan - Discharge Summary Discharge Rx Participant: No New Discharge Prescriptions: New hydrALAZINE HCL [Apresoline] 25 mg PO TID #0 tab Apixaban [Eliquis] 2.5 mg PO BID #0 tab Cephalexin [Keflex] 500 mg PO Q8HR 7 Days #21 cap SILVER sulfADIAZINE CREAM [Silvadene Cream] 1 applic TOPICAL DAILY #0 applic Allopurinol [Zyloprim] 100 mg PO DAILY #0 tab Continue Cyanocobalamin (Vitamin B-12) [Vitamin B-12] 1,000 mcg PO DAILY Cholecalciferol [Vitamin D3] 1,000 unit PO DAILY Ascorbic Acid [Vitamin C] 500 mg PO DAILY Tamsulosin HCl [Flomax] 0.8 mg PO DAILY Ranitidine HCl [Zantac] 300 mg PO DAILY Levothyroxine Sodium [Synthroid] 50 mcg PO DAILY Simvastatin [Zocor] 10 mg PO DAILY Pantoprazole Sodium [Protonix] 40 mg PO DAILY NIFEdipine XL [Procardia XL] 60 mg PO DAILY Mirabegron [Myrbetriq] 50 mg PO DAILY Mirabegron [Myrbetriq] 25 mg PO DAILY Donepezil [Aricept] 10 mg PO DAILY Prazosin [Minipress] 5 mg PO DAILY Prazosin [Minipress] 10 mg PO HS Discontinued Losartan/Hydrochlorothiazide [Hyzaar 100-25 Tablet] 1 tab PO DAILY Discharge Medication List Ascorbic Acid [Vitamin C] 500 mg PO DAILY 03/02/19 [History] Cholecalciferol [Vitamin D3] 1,000 unit PO DAILY 03/02/19 [History] Cyanocobalamin (Vitamin B-12) [Vitamin B-12] 1,000 mcg PO DAILY 03/02/19 [History] Donepezil [Aricept] 10 mg PO DAILY 03/02/19 [History] Levothyroxine Sodium [Synthroid] 50 mcg PO DAILY 03/02/19 [History] Mirabegron [Myrbetriq] 25 mg PO DAILY 03/02/19 [History] Mirabegron [Myrbetriq] 50 mg PO DAILY 03/02/19 [History] NIFEdipine XL [Procardia XL] 60 mg PO DAILY 03/02/19 [History] Pantoprazole Sodium [Protonix] 40 mg PO DAILY 03/02/19 [History] Ranitidine HCl [Zantac] 300 mg PO DAILY 03/02/19 [History] Simvastatin [Zocor] 10 mg PO DAILY 03/02/19 [History] Tamsulosin HCl [Flomax] 0.8 mg PO DAILY 03/02/19 [History] Prazosin [Minipress] 5 mg PO DAILY 03/03/19 [History] Prazosin [Minipress] 10 mg PO HS 03/03/19 [History] Allopurinol [Zyloprim] 100 mg PO DAILY #0 tab 03/06/19 [Rx] Apixaban [Eliquis] 2.5 mg PO BID #0 tab 03/06/19 [Rx] Cephalexin [Keflex] 500 mg PO Q8HR 7 Days #21 cap 03/06/19 [Rx] SILVER sulfADIAZINE CREAM [Silvadene Cream] 1 applic TOPICAL DAILY #0 applic 03/06/19 [Rx] hydrALAZINE HCL [Apresoline] 25 mg PO TID #0 tab 03/06/19 [Rx] Follow up Appointment(s)/Referral(s): Nela Snider MD [Primary Care Provider] - 1-2 days Activity/Diet/Wound Care/Special Instructions: activity as tolerated Diet heart healthy Discharge Disposition: TRANSFER TO SNF/ECF
[2019-03-06 17:30] LABS: Glucose,Whole Blood 191 mg/dL (75-99)
--- NOTE | 2019-03-06 21:53 | P.PN ---
Subjective Progress Note Date: 03/06/19 83-year-old male was cared for the family home setting by his of 25 years relates that the patient has been having a decline of his status. He has known dementia which has now had some acute worsening as he is become ill. To arise from the toilet he places his left arm and a culture in the right arm rests on a toilet tissue velazquez. Apparently(with some metal scrolling and resulted in a small scrape onto the arm. He now is developed significant swelling from the hand to proximal to the elbow. The patient developed some fever has not been feeling well. With this he was brought into hospital and consult was requested. Patient was also noticed to have left lower extremity swelling. Flexion evidence of a deep venous thrombosis and heparin has been started. Duplex the right arm without evidence of clot. Patient without new acute complaint. Comfortable sitting up in a chair. Significant dementia. 03/06/2019 patient continues to have improvement of the cellulitis of the right hand. Pain is improved. No open lesions are seen. Objective - Vital Signs Vital signs: Vital Signs Temp 97.8 F 03/06/19 12:50 Pulse 70 03/06/19 12:50 Resp 16 03/06/19 15:56 BP 174/77 03/06/19 12:50 Pulse Ox 97 03/06/19 12:50 Intake & Output 03/06/19 03/06/19 03/07/19 06:59 18:59 06:59 Intake Total 105 298.651 Balance 105 298.651 Intake: Intake, IV Titration 105 98.651 Amount Heparin Sod,Pork in 0.45% 105 98.651 NaCl 25,000 unit In 0.45 % NaCl 1 250ml.bag @ 18 UNITS/KG/HR 15.594 mls/hr IV .Q16H2M [facility] Rx#: [id number] Oral 200 Other: Voiding Method Toilet Toilet Incontinent Incontinent # Voids 2 3 - Exam 83-year-old male who is not in jemal distress but seems somewhat uncomfortable. Does complain of some right arm discomfort. HEENT: Anicteric conjunctiva are pink and moist nasal mucosa grossly intact without significant lesions, there is no thrush. Dentures in place Neck: The neck is supple without significant lymphadenopathy or thyromegaly. Lungs: Good bilateral air entry without significant crackles or wheezing. There is no significant bronchial sounds. There is no egophony or dullness. Heart: Irregular with an audible S1 and S2 soft S4 and loud 2/6 systolic murmur left sternal border to the axilla Extremities: Left upper extremity without acute lesions. The right arm shows a marked improvement over the last day with the topical therapy wrap elevation in warmth. There are no open lesions There is minimal right axillary tenderness. Left arm without acute changes. Left leg has evidence of edema compared to the right. Neuro: Patient is awake and alert. Relates that he and the used to winter in [place]. 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 He used ice 75 to navigate. The patient's relates that he is completely confabulating. - Labs CBC & Chem 7: 03/06/19 06:57 03/06/19 06:57 Labs: Abnormal Lab Results - Last 24 Hours (Table) 03/06/19 03/06/19 03/06/19 Range/Units 02:32 06:57 06:57 WBC 12.1 H (3.8-10.6) k/uL RBC 3.80 L (4.30-5.90) m/uL Hgb 11.3 L (13.0-17.5) gm/dL Hct 34.1 L (39.0-53.0) % Neutrophils # 10.1 H (1.3-7.7) k/uL APTT 88.5 H (22.0-30.0) sec Chloride 111 H (98-107) mmol/L BUN 43 H (9-20) mg/dL Creatinine 1.83 H (0.66-1.25) mg/dL Glucose 182 H (74-99) mg/dL POC Glucose (mg/dL) (75-99) mg/dL Total Protein 5.6 L (6.3-8.2) g/dL Albumin 3.0 L (3.5-5.0) g/dL 03/06/19 03/06/19 03/06/19 Range/Units 07:10 10:03 11:29 WBC (3.8-10.6) k/uL RBC (4.30-5.90) m/uL Hgb (13.0-17.5) gm/dL Hct (39.0-53.0) % Neutrophils # (1.3-7.7) k/uL APTT 81.8 H (22.0-30.0) sec Chloride (98-107) mmol/L BUN (9-20) mg/dL Creatinine (0.66-1.25) mg/dL Glucose (74-99) mg/dL POC Glucose (mg/dL) 178 H 181 H (75-99) mg/dL Total Protein (6.3-8.2) g/dL Albumin (3.5-5.0) g/dL 03/06/19 Range/Units 17:28 WBC (3.8-10.6) k/uL RBC (4.30-5.90) m/uL Hgb (13.0-17.5) gm/dL Hct (39.0-53.0) % Neutrophils # (1.3-7.7) k/uL APTT (22.0-30.0) sec Chloride (98-107) mmol/L BUN (9-20) mg/dL Creatinine (0.66-1.25) mg/dL Glucose (74-99) mg/dL POC Glucose (mg/dL) 191 H (75-99) mg/dL Total Protein (6.3-8.2) g/dL Albumin (3.5-5.0) g/dL Microbiology - Last 24 Hours (Table) 03/02/19 18:15 Blood Culture - Preliminary Blood No Growth after 72 hours Laboratory Results WBC 12.1 k/uL (3.8-10.6) H 03/06/19 06:57 RBC 3.80 m/uL (4.30-5.90) L 03/06/19 06:57 Hgb 11.3 gm/dL (13.0-17.5) L 03/06/19 06:57 Hct 34.1 % (39.0-53.0) L 03/06/19 06:57 MCV 89.6 fL (80.0-100.0) 03/06/19 06:57 MCH 29.6 pg (25.0-35.0) 03/06/19 06:57 MCHC 33.1 g/dL (31.0-37.0) 03/06/19 06:57 RDW 14.3 % (11.5-15.5) 03/06/19 06:57 Plt Count 231 k/uL (150-450) 03/06/19 06:57 Neutrophils % 83 % 03/06/19 06:57 Lymphocytes % 11 % 03/06/19 06:57 Monocytes % 5 % 03/06/19 06:57 Eosinophils % 0 % 03/06/19 06:57 Basophils % 0 % 03/06/19 06:57 Neutrophils # 10.1 k/uL (1.3-7.7) H 03/06/19 06:57 Lymphocytes # 1.3 k/uL (1.0-4.8) 03/06/19 06:57 Monocytes # 0.6 k/uL (0-1.0) 03/06/19 06:57 Eosinophils # 0.0 k/uL (0-0.7) 03/06/19 06:57 Basophils # 0.0 k/uL (0-0.2) 03/06/19 06:57 ESR 48 mm/hr (0-15) H 03/02/19 18:15 PT 10.5 sec (9.0-12.0) 03/03/19 13:02 INR 1.0 (<1.2) 03/03/19 13:02 APTT 81.8 sec (22.0-30.0) H 03/06/19 10:03 Sodium 140 mmol/L (137-145) 03/06/19 06:57 Potassium 4.2 mmol/L (3.5-5.1) 03/06/19 06:57 Chloride 111 mmol/L (98-107) H 03/06/19 06:57 Carbon Dioxide 24 mmol/L (22-30) 03/06/19 06:57 Anion Gap 5 mmol/L 03/06/19 06:57 BUN 43 mg/dL (9-20) H 03/06/19 06:57 Creatinine 1.83 mg/dL (0.66-1.25) H 03/06/19 06:57 Est GFR (CKD-EPI)AfAm 38 (>60 ml/min/1.73 sqM) 03/06/19 06:57 Est GFR (CKD-EPI)NonAf 33 (>60 ml/min/1.73 sqM) 03/06/19 06:57 Glucose 182 mg/dL (74-99) H 03/06/19 06:57 POC Glucose (mg/dL) 191 mg/dL (75-99) H 03/06/19 17:28 POC Glu [employer] Specialist ID Liliana Brady 03/06/19 17:[address] Glu mg/dL 134 03/03/19 09:33 Hemoglobin A1c 6.3 % (4.0-6.0) H 03/03/19 09:33 Uric Acid 7.8 mg/dL (3.5-8.5) 03/03/19 13:02 Calcium 10.1 mg/dL (8.4-10.2) 03/06/19 06:57 Total Bilirubin 0.4 mg/dL (0.2-1.3) 03/06/19 06:57 AST 33 U/L (17-59) 03/06/19 06:57 ALT 52 U/L (21-72) 03/06/19 06:57 Alkaline Phosphatase 119 U/L (38-126) 03/06/19 06:57 C-Reactive Protein 44.6 mg/L (<10.0) H 03/02/19 18:15 Total Protein 5.6 g/dL (6.3-8.2) L 03/06/19 06:57 Albumin 3.0 g/dL (3.5-5.0) L 03/06/19 06:57 Urine Color Yellow 03/03/19 09:05 Urine Appearance Cloudy (Clear) 03/03/19 09:05 Urine pH 5.5 (5.0-8.0) 03/03/19 09:05 Ur Specific [place] 1.015 (1.001-1.035) 03/03/19 09:05 Urine Protein Trace (Negative) H 03/03/19 09:05 Urine Glucose (UA) Negative (Negative) 03/03/19 09:05 Urine Ketones Negative (Negative) 03/03/19 09:05 Urine Blood Trace (Negative) H 03/03/19 09:05 Urine Nitrite Negative (Negative) 03/03/19 09:05 Urine Bilirubin Negative (Negative) 03/03/19 09:05 Urine Urobilinogen <2.0 mg/dL (<2.0) 04/23/19 09:05 Ur Leukocyte Esterase Large (Negative) H 03/03/19 09:05 Urine RBC 4 /hpf (0-5) 03/03/19 09:05 Urine WBC >182 /hpf (0-5) H 03/03/19 09:05 Urine WBC Clumps Occasional /hpf (None) H 03/03/19 09:05 Urine Bacteria Occasional /hpf (None) H 03/03/19 09:05 Stool Occult Blood Negative (Negative) 03/03/19 17:04 Random Vancomycin 17.1 ug/mL 03/06/19 06:57 Microbiology 03/02/19 18:15 Blood Blood Culture - Preliminary No Growth after 72 hours 03/03/19 09:05 Urine,Clean Catch Urine Culture - Final Assessment and Plan (1) Cellulitis of right arm Narrative/Plan: 83-year-old male is brought to Hospital by his because of worsening of his overall status. He has underlying dementia but seemed to have worsening as the pain swelling and redness to his right arm worsened. There is evidence of the cellulitis of the arm and antibiotic therapy with ceftriaxone and vancomycin have been started. Cultures are process. A Silvadene wrap is been requested for the right arm and addition of elevation a couple pillows will be helpful. The left leg is evidence of the acute deep venous thrombosis and is being anticoagulated. The patient may require ongoing intravenous antibiotic therapy and likely will go to rehabilitation to complete physical therapy and antibiotic therapy at discharge. 03/05/2019 patient has not been improvement of the swelling tenderness and eryt yumiko to the right arm. Showing a good response to current antibiotic therapy and local wound care. The patient will likely transition to rehab in the near future. We'll continue with some local wound care to the right arm until it's completely healed with the Silvadene wrap and some elevation. Antibiotic therapy may be transitioned to oral Keflex 500 mg every 8 hours for 7 days at the time of discharge. 03/06/2019 patient has further improved. Will not need IV access that is PICC line since oral antibiotic therapy with Keflex 500 mg every 8 hours for a week should be adequate continue local wound care and elevation of the limb. Status: Acute Code(s): L03.113 - CELLULITIS OF RIGHT UPPER LIMB SNOMED Code(s): 113155651 (2) Cellulitis of hand Status: Acute Code(s): L03.119 - CELLULITIS OF UNSPECIFIED PART OF LIMB SNOMED Code(s): 87587381 (3) Dementia Status: Acute Code(s): F03.90 - UNSPECIFIED DEMENTIA WITHOUT BEHAVIORAL DISTURBANCE SNOMED Code(s): 75444071 (4) Left leg DVT Status: Acute Code(s): I82.402 - ACUTE EMBOLISM AND THOMBOS UNSP DEEP VEINS OF L LOW EXTREM SNOMED Code(s): 907715919
== END 2019-03-06 18:17 | DRG 300 ==
LOC: EC 16:11 → 4MS4W 20:59 → OBSVTOIN 03-04 09:55 → 3NMEDONC 03-04 17:59
PROVIDERS: ADMIT Internal Medicine; ATTEND Internal Medicine
DX: I82.402 Acute embolism and thrombosis of unspecified deep veins of left lower extremity (principal); L03.113 Cellulitis of right upper limb; N17.9 Acute kidney failure, unspecified; N39.0 Urinary tract infection, site not specified; L03.114 Cellulitis of left upper limb; I95.9 Hypotension, unspecified; E11.65 Type 2 diabetes mellitus with hyperglycemia; F02.80 Dementia in other diseases classified elsewhere, unspecified severity, without behavioral disturbance, psychotic disturbance, mood disturbance, and anxiety; G30.9 Alzheimer's disease, unspecified; I25.10 Atherosclerotic heart disease of native coronary artery without angina pectoris; I10 Essential (primary) hypertension; E78.5 Hyperlipidemia, unspecified; M19.90 Unspecified osteoarthritis, unspecified site; N40.0 Benign prostatic hyperplasia without lower urinary tract symptoms; E03.9 Hypothyroidism, unspecified; R74.8 Abnormal levels of other serum enzymes; R32 Unspecified urinary incontinence; M10.9 Gout, unspecified; M11.20 Other chondrocalcinosis, unspecified site; E66.9 Obesity, unspecified; T38.0X5A Adverse effect of glucocorticoids and synthetic analogues, initial encounter; Z68.29 Body mass index [BMI] 29.0-29.9, adult; Z79.899 Other long term (current) drug therapy; Z79.890 Hormone replacement therapy; Z87.891 Personal history of nicotine dependence; Z85.828 Personal history of other malignant neoplasm of skin; Z89.429 Acquired absence of other toe(s), unspecified side; Z83.3 Family history of diabetes mellitus
CPT/HCPCS: 36415; 80053; 80202; 81001; 82272; 83036; 84550; 85025; 85610; 85652; 85730; 86140; 87040; 87086; 93970; 96361; 96365; 99285

== ENCOUNTER 2019-11-16 10:07 | Emergency (ER) | payer MEDICARE ==
[2019-11-16 10:20] VITALS: RESP 18; TEMP 97.3
[2019-11-16] MEDS ORDERED: SODIUM CHLORIDE 0.9% 1,000 ML IV ONE (10:53)
--- NOTE | 2019-11-16 11:11 | ED ---
Altered Mental Status HPI - General Chief Complaint: Altered Mental Status Stated Complaint: not sleeping/blood pressure & sugar concerns Source: patient, family Mode of arrival: ambulatory Limitations: no limitations - History of Present Illness Initial Comments: This 84-year-old white male presents with with a complaint of altered mental status. The patient is demented and is unable to give any degree of history himself. He has no current complaints. He denies any pain. The gives the history and relates that he has had dementia for the past 10 years. Over the past 3 days he is much worse. He apparently has been pulling things off the wall, extremely confused, and she states that he is too much for her to handle at home. She is his only caregiver in needs to watch him 24 hours a day. She denies him having any fevers. He is incontinent of urine multiple times throughout the night which is unchanged since February the past year. She denies any known recent infections. He apparently has had urinary tract infections in the past. There's been no cough or difficulty in breathing. He has no pain that she is aware of. She relates that she can no longer take care of him at home as he is too much for her to handle. The relates that he also has had a slight shuffle gait recently. No other identifiable complaints or modifying factors. - Related Data Home Medications Medication Instructions Recorded Confirmed Ascorbic Acid [Vitamin C] 500 mg PO DAILY 03/02/19 11/16/19 Cholecalciferol [Vitamin D3 (25 1,000 unit PO DAILY 03/02/19 11/16/19 Mcg = 1000 Iu)] Cyanocobalamin (Vitamin B-12) 1,000 mcg PO DAILY 03/02/19 11/16/19 [Vitamin B-12] Donepezil [Aricept] 10 mg PO DAILY 03/02/19 11/16/19 NIFEdipine XL [Procardia XL] 60 mg PO HS 03/02/19 11/16/19 Pantoprazole Sodium [Protonix] 40 mg PO DAILY 03/02/19 11/16/19 Ranitidine HCl [Zantac] 300 mg PO HS 03/02/19 11/16/19 Tamsulosin HCl [Flomax] 0.8 mg PO DAILY 03/02/19 11/16/19 Prazosin [Minipress] 5 mg PO DAILY 03/03/19 11/16/19 Prazosin [Minipress] 10 mg PO HS 03/03/19 11/16/19 Apixaban [Eliquis] 2.5 mg PO BID 11/16/19 11/16/19 Aspirin 81 mg PO DAILY 11/16/19 11/16/19 Ferrous Sulfate [Feosol] 325 mg PO DAILY 11/16/19 11/16/19 Furosemide [Lasix] 20 mg PO DAILY 11/16/19 11/16/19 glipiZIDE XL [Glucotrol Xl] 5 mg PO DAILY 11/16/19 11/16/19 hydrALAZINE HCL [Apresoline] 50 mg PO BID 11/16/19 11/16/19 risperiDONE [RisperDAL] 0.5 mg PO HS 11/16/19 11/16/19 Previous Rx's Medication Instructions Recorded Allopurinol [Zyloprim] 100 mg PO DAILY #0 tab 03/06/19 Allergies Allergy/AdvReac Type Severity Reaction Status Date / Time No Known Allergies Allergy Verified 11/16/19 11:36 Review of Systems ROS Statement: Those systems with pertinent positive or pertinent negative responses have been documented in the HPI. ROS Other: All systems not noted in ROS Statement are negative. Past Medical History Past Medical History: Coronary Artery Disease (CAD), Dementia, Diabetes Mellitus, Hyperlipidemia, Hypertension, Thyroid Disorder History of Any Multi-Drug Resistant Organisms: None Reported Additional Past Surgical History / Comment(s): toe amputation Past Anesthesia/Blood Transfusion Reactions: No Reported Reaction Past Psychological History: No Psychological Hx Reported Smoking Status: Never smoker Past Alcohol Use History: None Reported Past Drug Use History: None Reported - Past Family History Brother(s) Family Medical History: Diabetes Mellitus General Exam - General Exam Comments Initial Comments: GENERAL: The patient is well nourished and well hydrated. VITAL SIGNS: Heart rate, blood pressure, respiratory rate reviewed as recorded in nurse's notes. EYES: Pupils are round and reactive. Extraocular movements are intact. No conjunctival / lid redness or swelling. ENT: No external evidence of injury, swelling, or ecchymosis. Airway is patent. Throat is clear. NECK: Nontender. No swelling or evidence of injury. No subcutaneous emphysema. Trachea is midline. No thyroid mass. HEART: Regular rate and rhythm. Good peripheral pulses. LUNGS/CHEST: Breath sounds clear and equal bilaterally. No rales, rhonchi, or w heezes. No ecchymosis, subcutaneous emphysema, or tenderness. ABDOMEN: Abdomen soft without tenderness. No palpable masses or organomegaly. No peritoneal signs. No abdominal wall swelling or ecchymosis. EXTREMITIES: No extremity tenderness. Normal muscle tone and function. No thoracolumbar tenderness. Mild swelling of lower extremities which is chronic. NEUROLOGIC: Sensation is grossly intact. Cranial nerve exam reveals face is symmetrical, tongue is midline, speech is clear. SKIN: No abrasions or ecchymosis is noted. No induration or masses noted. PSYCHIATRIC: Alert and pleasant, no apparent distress. Limitations: no limitations Course Vital Signs 11/16/19 10:14 Temperature 97.3 F L Pulse Rate 78 Respiratory 18 Rate Blood Pressure 157/57 O2 Sat by Pulse 96 Oximetry Medical Decision Making - Medical Decision Making The patient is seen and examined. All diagnostics are reviewed. An EKG was done and this shows a normal sinus rhythm at a rate of 63. There is no acute ST-T wave changes identified. The MS intervals 194, QRS is 90, QTC intervals 435. Laboratory does show evidence of acute kidney injury. There also is a degree of anemia. He also shows evidence of a urinary tract infection. Creatinine is elevated as compared to previous. The chest x-ray does not show any acute processes. The computed tomography scan of the brain shows ventriculomegaly with the need to correlate for the possibility of normal pressure hydrocephalus. This really could potentially be a possibility. The patient started on Rocephin intravenously. He started smiling fluids as well. This felt as though he would require admission to the hospital for further treatment. The relates that she does not want the patient admitted to Dr. Wang due to previous history. The case is discussed with Dr. Snider and she requests Drew to [facility]. The case is discussed with Dr. Latif and he requests that we transfer the patient to another hospital as we do not have neurology coverage at this time and it sounds as though patient certainly could have normal pressure hydrocephalus. It is felt as though the patient's symptomatology does correlate with possible normal pressure hydrocephalus as well. The family is agreeable with transfer to [facility]. The case is discussed with Dr. Banerjee and he is agreeable with transfer. - Lab Data Result diagrams: 11/16/19 11:35 11/16/19 11:35 Lab Results 11/16/19 11/16/19 11/16/19 Range/Units 11:35 11:35 11:35 WBC 6.3 (3.8-10.6) k/uL RBC 3.36 L (4.30-5.90) m/uL Hgb 10.5 L (13.0-17.5) gm/dL Hct 31.8 L (39.0-53.0) % MCV 94.7 (80.0-100.0) fL MCH 31.2 (25.0-35.0) pg MCHC 32.9 (31.0-37.0) g/dL RDW 14.8 (11.5-15.5) % Plt Count 130 L (150-450) k/uL Neutrophils % 77 % Lymphocytes % 9 % Monocytes % 5 % Eosinophils % 6 % Basophils % 0 % Neutrophils # 4.9 (1.3-7.7) k/uL Lymphocytes # 0.6 L (1.0-4.8) k/uL Monocytes # 0.3 (0-1.0) k/uL Eosinophils # 0.4 (0-0.7) k/uL Basophils # 0.0 (0-0.2) k/uL PT (9.0-12.0) sec INR (<1.2) APTT (22.0-30.0) sec Sodium 143 (137-145) mmol/L Potassium 4.7 (3.5-5.1) mmol/L Chloride 112 H (98-107) mmol/L Carbon Dioxide 22 (22-30) mmol/L Anion Gap 9 mmol/L BUN 56 H (9-20) mg/dL Creatinine 2.53 H (0.66-1.25) mg/dL Est GFR (CKD-EPI)AfAm 26 (>60 ml/min/1.73 sqM) Est GFR (CKD-EPI)NonAf 22 (>60 ml/min/1.73 sqM) Glucose 140 H (74-99) mg/dL Calcium 11.1 H (8.4-10.2) mg/dL Total Bilirubin 0.5 (0.2-1.3) mg/dL AST 45 (17-59) U/L ALT 84 H (4-49) U/L Alkaline Phosphatase 152 H (38-126) U/L Ammonia (<30) umol/L Total Protein 6.7 (6.3-8.2) g/dL Albumin 3.9 (3.5-5.0) g/dL Urine Color Yellow Urine Appearance Clear (Clear) Urine pH 5.0 (5.0-8.0) Ur Specific [place] 1.015 (1.001-1.035) Urine Protein Negative (Negative) Urine Glucose (UA) Negative (Negative) Urine Ketones Negative (Negative) Urine Blood Negative (Negative) Urine Nitrite Negative (Negative) Urine Bilirubin Negative (Negative) Urine Urobilinogen <2.0 (<2.0) mg/dL Ur Leukocyte Esterase Moderate H (Negative) Urine RBC 1 (0-5) /hpf Urine WBC 25 H (0-5) /hpf Ur Squamous Epith Cells 1 (0-4) /hpf Urine Opiates Screen Not Detected (NotDetected) Ur Oxycodone Screen Not Detected (NotDetected) Urine Methadone Screen Not Detected (NotDetected) Ur Propoxyphene Screen Not Detected (NotDetected) Ur Barbiturates Screen Not Detected (NotDetected) U Tricyclic Antidepress Not Detected (NotDetected) Ur Phencyclidine Scrn Not Detected (NotDetected) Ur Amphetamines Screen Not Detected (NotDetected) U Methamphetamines Scrn Not Detected (NotDetected) U Benzodiazepines Scrn Not Detected (NotDetected) Urine Cocaine Screen Not Detected (NotDetected) U Marijuana (THC) Screen Not Detected (NotDetected) 11/16/19 11/16/19 Range/Units 11:35 11:35 WBC (3.8-10.6) k/uL RBC (4.30-5.90) m/uL Hgb (13.0-17.5) gm/dL Hct (39.0-53.0) % MCV (80.0-100.0) fL MCH (25.0-35.0) pg MCHC (31.0-37.0) g/dL RDW (11.5-15.5) % Plt Count (150-450) k/uL Neutrophils % % Lymphocytes % % Monocytes % % Eosinophils % % Basophils % % Neutrophils # (1.3-7.7) k/uL Lymphocytes # (1.0-4.8) k/uL Monocytes # (0-1.0) k/uL Eosinophils # (0-0.7) k/uL Basophils # (0-0.2) k/uL PT 10.2 (9.0-12.0) sec INR 0.9 (<1.2) APTT 25.0 (22.0-30.0) sec Sodium (137-145) mmol/L Potassium (3.5-5.1) mmol/L Chloride (98-107) mmol/L Carbon Dioxide (22-30) mmol/L Anion Gap mmol/L BUN (9-20) mg/dL Creatinine (0.66-1.25) mg/dL Est GFR (CKD-EPI)AfAm (>60 ml/min/1.73 sqM) Est GFR (CKD-EPI)NonAf (>60 ml/min/1.73 sqM) Glucose (74-99) mg/dL Calcium (8.4-10.2) mg/dL Total Bilirubin (0.2-1.3) mg/dL AST (17-59) U/L ALT (4-49) U/L Alkaline Phosphatase (38-126) U/L Ammonia <9 (<30) umol/L Total Protein (6.3-8.2) g/dL Albumin (3.5-5.0) g/dL Urine Color Urine Appearance (Clear) Urine pH (5.0-8.0) Ur Specific [place] (1.001-1.035) Urine Protein (Negative) Urine Glucose (UA) (Negative) Urine Ketones (Negative) Urine Blood (Negative) Urine Nitrite (Negative) Urine Bilirubin (Negative) Urine Urobilinogen (<2.0) mg/dL Ur Leukocyte Esterase (Negative) Urine RBC (0-5) /hpf Urine WBC (0-5) /hpf Ur Squamous Epith Cells (0-4) /hpf Urine Opiates Screen (NotDetected) Ur Oxycodone Screen (NotDetected) Urine Methadone Screen (NotDetected) Ur Propoxyphene Screen (NotDetected) Ur Barbiturates Screen (NotDetected) U Tricyclic Antidepress (NotDetected) Ur Phencyclidine Scrn (NotDetected) Ur Amphetamines Screen (NotDetected) U Methamphetamines Scrn (NotDetected) U Benzodiazepines Scrn (NotDetected) Urine Cocaine Screen (NotDetected) U Marijuana (THC) Screen (NotDetected) Disposition Clinical Impression: Altered mental status, Dementia, Anemia, Normal pressure hydrocephalus, Acute kidney injury, Hypertension Disposition: OTHER INSTITUTION NOT DEFINED Condition: Fair Is patient prescribed a controlled substance at d/c from ED?: No Time of Disposition: 13:17 - Out of Hospital Transfer - Req. Specs Out of Hospital Transfer - Requested Specifics: Other Emergency Center ([facility])
[2019-11-16 12:04] LABS: Basophils % (A) 0 %; Eosinophils # (A) 0.4 k/uL (0-0.7); Eosinophils % (A) 6 %; HCT 31.8 % (39.0-53.0); HGB 10.5 gm/dL (13.0-17.5); Lymphocytes # (A) 0.6 k/uL (1.0-4.8); Lymphocytes % (A) 9 %; MCH 31.2 pg (25.0-35.0); MCHC 32.9 g/dL (31.0-37.0); MCV 94.7 fL (80.0-100.0); Mean Platelet Volume 9.8; Monocytes # (A) 0.3 k/uL (0-1.0); Monocytes % (A) 5 %; Neutrophils # (A) 4.9 k/uL (1.3-7.7); Neutrophils % (A) 77 %; Platelet Count 130 k/uL (150-450); RBC 3.36 m/uL (4.30-5.90); RDW 14.8 % (11.5-15.5); WBC 6.3 k/uL (3.8-10.6)
--- NOTE | 2019-11-16 12:08 | CT ---
EXAMINATION TYPE: CT brain wo con DATE OF EXAM: 11/16/2019 COMPARISON: None HISTORY: 84-year-old male confusion, altered mental status TECHNIQUE: Examination was done in axial plane without intravenous contrast. Coronal and sagittal r econstructions performed. CT DLP: 1099.4 mGycm Automated exposure control for dose reduction was used. FINDINGS: There is no evidence of acute intracranial hemorrhage, acute ischemic changes, mass, mass-effect, or extra-axial fluid collection. There is no effacement of cerebral sulci or basal subarachnoid cister ns. There is no midline shift. [place]-white matter distinction is preserved. Slight leftward nasal septal deviation. Paranasal sinuses and mastoid air cells well pneumatized. Mild ventriculomegaly, Adalid's ratio calculated 0.38. Moderate patchy periventricular white matter hyp odensities especially posteriorly suggests changes of chronic small vessel ischemic disease. Atherosc lerotic calcifications in the carotid siphons. IMPRESSION: 1. Mild ventriculomegaly may in part relate to central cerebral atrophy. Correlate for possible NPH. 2. Otherwise, no acute intracranial abnormality seen.
[2019-11-16 12:09] LABS: INR 0.9 (<1.2); Prothrombin Time 10.2 sec (9.0-12.0)
[2019-11-16 12:13] LABS: Albumin 3.9 g/dL (3.5-5.0); Calcium 11.1 mg/dL (8.4-10.2); Potassium 4.7 mmol/L (3.5-5.1); Total Bilirubin 0.5 mg/dL (0.2-1.3); Total Protein 6.7 g/dL (6.3-8.2)
--- NOTE | 2019-11-16 12:13 | XR ---
EXAMINATION TYPE: XR chest 2V DATE OF EXAM: 11/16/2019 COMPARISON: 11/10/2012 HISTORY: Altered mental status TECHNIQUE: Frontal and lateral views of the chest are obtained. FINDINGS: There is no focal air space opacity, pleural effusion, or pneumothorax seen. The cardiac silhouette size is mildly enlarged. The osseous structures are intact. Moderate multilevel degenera tive disc disease of spine. IMPRESSION: No acute cardiopulmonary process.
[2019-11-16 12:18] LABS: Appearance,Urine Clear (Clear); Bilirubin,Urine Negative (Negative); Blood,Urine Negative (Negative); Color,Urine Yellow; Glucose,Urine (UA) Negative (Negative); Ketones,Urine Negative (Negative); Leukocyte Esterase,Urine Moderate (Negative); Nitrite,Urine Negative (Negative); Protein,Urine Negative (Negative); RBC,Urine 1 /hpf (0-5); Specific Gravity,Urine 1.015 (1.001-1.035); Squamous Epithelial Cell,Urine 1 /hpf (0-4); Urobilinogen,Urine <2.0 mg/dL (<2.0); WBC,Urine 25 /hpf (0-5)
[2019-11-16 12:20] LABS: Amphetamine Screen,Urine Not Detected (NotDetected); Barbiturate Screen,Urine Not Detected (NotDetected); Benzodiazepines Screen,Urine Not Detected (NotDetected); Cocaine Screen,Urine Not Detected (NotDetected); Methadone Screen, Urine Not Detected (NotDetected); Opiate Screen,Urine Not Detected (NotDetected); Oxycodone Screen, Urine Not Detected (NotDetected); Phencyclidine Screen,Urine Not Detected (NotDetected); Tricyclic Antidepressant,Urine Not Detected (NotDetected); Urn Cannabinoid Scrn Not Detected (NotDetected)
[2019-11-16] MEDS ORDERED: SODIUM CHLORIDE 0.9% 1,000 ML IV STA (13:19)
[2019-11-16] MEDS ORDERED: SODIUM CHLORIDE 0.9% 500 ML IV STA (13:19)
[2019-11-16 13:22] VITALS: BP 164/69; PULSE 66
== END 2019-11-16 14:15 | disposition short-term general hospital (02) ==
LOC: EC 10:07
DX: F03.90 Unspecified dementia, unspecified severity, without behavioral disturbance, psychotic disturbance, mood disturbance, and anxiety (principal); G91.2 (Idiopathic) normal pressure hydrocephalus; N17.9 Acute kidney failure, unspecified; I10 Essential (primary) hypertension; D64.9 Anemia, unspecified; N39.0 Urinary tract infection, site not specified; R79.89 Other specified abnormal findings of blood chemistry; M79.89 Other specified soft tissue disorders; I25.10 Atherosclerotic heart disease of native coronary artery without angina pectoris; E11.9 Type 2 diabetes mellitus without complications; Z79.01 Long term (current) use of anticoagulants; Z79.82 Long term (current) use of aspirin; Z79.84 Long term (current) use of oral hypoglycemic drugs; Z79.899 Other long term (current) drug therapy; Z53.8 Procedure and treatment not carried out for other reasons
CPT/HCPCS: 36415; 93005; 80053; 82140; 85025; 85610; 85730; 81001; 87040; 80306; 87086; 71046; 70450; 99285; 96365; J0696